=== PATIENT | female | born 1935 | race Caucasian/White ===

== ENCOUNTER 2017-05-12 13:43 | Day surgery (SDC) | payer MEDICARE ==
[2017-05-12] MEDS ORDERED: diphenhydrAMINE 25 MG CAP PO SCH (16:15)
[2017-05-12] MEDS ORDERED: Acetaminophen 500 MG TAB PO SCH (16:15)
[2017-05-12 21:28] VITALS: TEMP 97.8
[2017-05-12 21:51] VITALS: BP 180/80
[2017-05-12 21:55] LABS: #Basophils 0.1 thou/uL (0.0-0.2); #Eosinphils 0.3 thou/uL (0.0-0.7); #Lymphocytes 1.7 thou/uL (1.20-3.40); #Monocytes 0.9 thou/uL (0.11-0.59); #Neutrophils 4.1 thou/uL (1.40-6.50); %Basophils 1.1 % (0.0-1.0); %Eosinophils 4.5 % (0.0-10.0); %Lymphocytes 24.5 % (21.0-51.0); %Monocytes 12.4 % (0.0-10.0); Hematocrit 30.1 % (36.0-47.0); Mean Platelet Volume 5.8 fL (7.4-10.4); Red Blood Cell (RBC) Count 3.54 mill/uL (4.20-5.40); White Blood Cell (WBC) Count 7.1 thou/uL (4.8-10.8)
== END 2017-05-12 22:12 | disposition home or self-care (01) ==
LOC: ONC/OP 13:43 → ONC 13:47 → ONC/OP 22:12
PROVIDERS: ATTEND Internal Medicine Medical Oncology
PROC: 30233N1 Transfusion of Nonautologous Red Blood Cells into Peripheral Vein, Percutaneous Approach (ICD-10-PCS; principal; 2017-05-12)
DX: D64.9 Anemia, unspecified (principal); D69.59 Other secondary thrombocytopenia
CPT/HCPCS: 36415; 36430; 82728; 85025; 86850; 86900; 86901; P9016

== ENCOUNTER 2017-10-11 15:33 | Inpatient (IN) | payer MEDICARE ==
[2017-10-11 16:45] VITALS: BMI 17.4
[2017-10-11] MEDS ORDERED: Acetaminophen 325 MG TAB PO PRN (16:52)
[2017-10-11] MEDS ORDERED: cefTRIAXone\\ROCEPHIN 1 GM in Sodium Chloride 0.9% 100 ML IVPB SCH (17:00)
--- NOTE | 2017-10-11 19:19 | RAD ---
CHEST TWO VIEWS: HISTORY: Hypoxia. COMPARISON: None. FINDINGS: There is atherosclerosis of the aorta. Heart size is within the upper limits of normal. Lungs are h yperinflated. Interstitial opacities presumably represent fibrotic change. Superimposed infiltrate cannot be excluded. The lungs are hyperinflated. No pneumothorax. A small amount of pleural effusi on in the left hemithorax cannot be excluded. There is diffuse bone demineralization. IMPRESSION: 1. Atherosclerosis. 2. Chronic obstructive pulmonary disease. 3. Pulmonary fibrosis. 4. Interstitial opacities may represent chronic change. Superimposed infiltrate cannot be excluded. POS: [facility]
[2017-10-11] MEDS ORDERED: Sodium Chloride 0.9% 10 ML ONE (20:34)
[2017-10-11] MEDS: cefTRIAXone\\ROCEPHIN 1 GM, Syringe 0.4 ML in Sterile Water 9.6 ML SLOW IVP SCH (20:34)
[2017-10-11] MEDS: Azithromycin 500 MG in Sodium Chloride 0.9% 250 ML 250 ML IVPB SCH (20:41)
[2017-10-11] MEDS: guaiFENesin 200 MG TAB PO SCH (20:58)
--- NOTE | 2017-10-11 21:02 | HP ---
CHIEF COMPLAINT: Hypoxia. HISTORY OF PRESENT ILLNESS: The patient is a very pleasant 82-year-old female who was seen at [facility] office for anemia and was found to be hypoxic. The patient's daughter who is at bedside stated th at about on the patient started feeling unwell. On Wednesday, she went to her PCP, who prescri bed her a Z-Osmar and some steroids and sent her home. The patient stated that initially she has felt better; however, today when she went to get her routine blood draw, she felt really tired and weak. At that time, vitals were checked and the patient was found to be hypoxic at room air at 98%. The charu james then was transferred to the hospital for further evaluation. The patient states that she has b een having a cough with sputum production. Denies any fevers or chills today; however, stated that s he had a low grade fever on Wednesday. Denies any sick contacts, nausea, vomiting or diarrhea. The pat nathan states that she is normally very active moves around with her friends and is constantly doing so mething or the other. The patient does have a history of smoking remotely in the past; however, no h istory of current smoking. PAST MEDICAL HISTORY: She has a history of anemia, unknown etiology; and hypertension. PAST SURGICAL HISTORY: She had an appendectomy and hysterectomy. SOCIAL HISTORY: She used to smoke half a pack a day many years ago; however, currently does not smok e, has not smoked for several years. Denies any alcohol or drug abuse. She was a hairdresser. FAMILY HISTORY: Her mother and father both had hypertension. REVIEW OF SYSTEMS: The following complete review of systems was negative, unless otherwise mentioned in the HPI or below: Constitutional: Weight loss or gain, ability to conduct usual activities. Sk in: Rash, itching. Eyes: Double vision, pain. ENT/Mouth: Nose bleeding, neck stiffness, pain, te nderness. Cardiovascular: Palpitations, dyspnea on exertion, orthopnea. Respiratory: Shortness of breath, wheezing, cough, hemoptysis, fever or night sweats. Gastrointestinal: Poor appetite, abdom inal pain, heartburn, nausea, vomiting, constipation, or diarrhea. Genitourinary: Urgency, frequenc y, dysuria, nocturia. Musculoskeletal: Pain, swelling. Neurologic/Psychiatric: Anxiety, depressio n. Allergy/Immunologic: Skin rash, bleeding tendency. All negative except for the ones mentioned i n the HPI. MEDICATIONS: She takes aspirin 81 mg daily, Norvasc 5 mg daily, Claritin 10 mg daily. LABORATORY AND X-RAY FINDINGS: She does not get the laboratory results from the clinic. She had a C BC done, which indicated a WBC of 9.8, hemoglobin of 10.0, hematocrit of I believe it was 30.0, plate lets appeared to be normal. Chest x-ray has been ordered and is pending. PHYSICAL EXAMINATION: VITAL SIGNS: She is 98.0 temperature, pulse of 82, respirations of 20, she is 93% on 2 liters and 15 4/69 her blood pressure. GENERAL: She is awake, alert, able to completely speak full sentences, and does not appear in any re spiratory distress. CARDIOVASCULAR: S1, S2 present. No murmurs, rubs or gallops. LUNGS: Clear to auscultation. No rhonchi or wheezes noted. ABDOMEN: Soft, bowel sounds are present x2. No hepatomegaly or splenomegaly noted. EXTREMITIES: No edema. ASSESSMENT AND PLAN: The patient is a very pleasant 82-year-old female, who presents to the hospital , sent from clinic for hypoxia. 1. Acute hypoxia. Differential including possible bronchitis versus pneumonia, also heart failure. Heart failure seems to be unlikely since this just started recently on . The patient does n ot like too many testing to be done, so we will try and minimize testing; however, she has agreed on getting a chest x-ray. We will also check some a.m. labs, which she has agreed on and also check a B [employer] tomorrow. The patient's family was not very happy about Levaquin, given the side effects I did te ll them, but would start ceftriaxone and azithromycin. The patient's daughter stated that she is all ergic to PENICILLIN; however, has tolerated Keflex in the past, so we will start ceftriaxone and azit hromycin. She did take 4 days of azithromycin and 2 days of p.o. steroids. However, at this moment, I do not think she needs steroids, her lungs are completely clear. We will also need to give her Du oNeb and also we will give her some cough suppressants. We will also check a respiratory viral panel and we will also check a sputum culture if she is able to produce a good sputum. 2. Anemia. The patient has received blood transfusion once in April of last year. She normally gets her blood drawn every couple weeks. Today, her hemoglobin was 10, which I do not think could be contributing to her pneumonia. 3. Hypertension. We will continue her home medications. 4. Deep venous thrombosis prophylaxis. We will put the patient on subcu heparin. I did speak with the patient. She stated that she does not want to be resuscitated. This is in front of the patient' s daughter and DNR status was put in the computer.
[2017-10-12 04:44] LABS: #Lymphocytes 0.7 thou/uL (1.20-3.40); #Monocytes 0.7 thou/uL (0.11-0.59); #Neutrophils 7.1 thou/uL (1.40-6.50); %Basophils 0.2 % (0.0-1.0); %Eosinophils 0.1 % (0.0-10.0); %Lymphocytes 8.5 % (21.0-51.0); %Monocytes 8.1 % (0.0-10.0); %Neutrophils 83.1 % (42.0-75.0); Hemoglobin 10.2 g/dL (12.0-16.0); Mean Corpuscular HGB CONC 32.3 g/dL (32.0-36.0); Mean Corpuscular Hemoglobin 28.4 pg (27.0-31.0); Mean Corpuscular Volume 87.9 fl (81.0-99.0); Platelet Count 372 thou/uL (130-400); RBC Distribution Width 16.6 % (11.5-14.5); Red Blood Cell (RBC) Count 3.58 mill/uL (4.20-5.40); White Blood Cell (WBC) Count 8.5 thou/uL (4.8-10.8)
[2017-10-12 05:26] LABS: Anion Gap 14 mmol/L (10-20); BUN (Urea Nitrogen) 12 mg/dL (9.8-20.1); Calc. Creatinine Clearance 44 mL/min (70-130); Carbon Dioxide 23 mmol/L (23-31); Chloride 99 mmol/L (98-107); Estimated GFR-MDRD 73; Glucose 115 mg/dL (83-110); Potassium 3.5 mmol/L (3.5-5.1); Sodium 132 mmol/L (136-145)
[2017-10-12] MEDS: Amlodipine 5 MG TAB PO SCH (08:22)
[2017-10-12] MEDS: Aspirin 81 mg Enteric Coated Tablet PO SCH (08:22)
[2017-10-12] MEDS: guaiFENesin 200 MG TAB PO SCH ×2 (08:23→19:43)
--- NOTE | 2017-10-12 12:34 | PDOC.PN ---
- Subjective Encounter Start Date: 10/12/17 Encounter Start Time: 08:30 Subjective: pt up in chair feels much better today - Objective Resuscitation Status: Resuscitation Status DNR:Do Not Resuscitate Vital Signs & Weight: Vital Signs (12 hours) Temp Pulse Resp BP BP Pulse Ox 10/12/17 10:24 70 16 92 L 10/12/17 09:15 90 L 10/12/17 08:22 83 10/12/17 08:00 99.0 F 83 18 90 L 10/12/17 07:20 99.0 F 79 18 123/58 L 89 L 10/12/17 06:15 83 16 83 L 10/12/17 04:27 99.3 F 85 20 130/59 L 89 L 10/12/17 02:38 86 20 93 L Weight Admit Weight 108 lb 6.4 oz Weight 108 lb 6.4 oz I&O: 10/11/17 10/12/17 10/13/17 06:59 06:59 06:59 Intake Total 259.6 Balance 259.6 Result Diagrams: 10/12/17 04:22 10/12/17 04:22 Phys Exam - Physical Examination HEENT: PERRLA, moist MMs, sclera anicteric, TM's clear, oral pharynx no lesions , 2+ tonsils Neck: no nodes, no JVD, supple, full ROM Respiratory: no wheezing, no rales, no rhonchi, wheezing present, clear to auscultation bilateral Cardiovascular: RRR, no significant murmur, no rub, gallop, irregular Gastrointestinal: soft, non-tender, no distention, positive bowel sounds Musculoskeletal: no edema, pulses present, edema present Dx/Plan - Plan 1) Acute hypoxia 2) acute bronchitis rhino virus positve 3) ? underlying lung disease 4) chronic anemia plan: pt's labs are stable no elevated wbc's. will continue current abx given her age and undiagnosed lung disease copd vs interstitial. Pt does not want further testing and does not want to know. continue duonebs will add steroids. hh is stable. pt is still on oxygen 3L. * . Review of Systems - Review of Systems ENT: negative: Ear Pain, Ear Discharge, Nose Pain, Nose Discharge, Nose Congestion, Mouth Pain, Mouth Swelling, Throat Pain, Throat Swelling, Other Respiratory: Cough Cardiovascular: negative: chest pain, palpitations, orthopnea, paroxysmal nocturnal dyspnea, edema, light headedness, other Gastrointestinal: negative: Nausea, Vomiting, Abdominal Pain, Diarrhea, Constipation, Melena, Hematochezia, Other Genitourinary: negative: Dysuria, Frequency, Incontinence, Hematuria, Retention , Other - Medications/Allergies Allergies/Adverse Reactions: Allergies Allergy/AdvReac Type Severity Reaction Status Date / Time Penicillins Allergy Verified 10/11/17 16:20 Medications: Current Medications Acetaminophen (Tylenol) 650 mg PO Q4H PRN PRN Reason: Headache/Fever or Pain Albuterol/Ipratropium (Duoneb) 3 ml IPPB [id number] [facility] Last Admin: 10/12/17 10:24 Dose: 3 ml Amlodipine Besylate (Norvasc) 5 mg PO DAILY [facility] Last Admin: 10/12/17 08:22 Dose: 5 mg Aspirin (Ecotrin) 81 mg PO DAILY-AC [facility] Last Admin: 10/12/17 08:22 Dose: 81 mg Guaifenesin (Organ-I Nr) 200 mg PO BID [facility] Last Admin: 10/12/17 08:23 Dose: 200 mg Azithromycin 500 mg/ Sodium (Chloride) 250 mls @ 250 mls/hr IVPB 1999 [facility] Last Admin: 10/11/17 20:41 Dose: 250 mls Ceftriaxone Sodium 1 gm/ (Syringe 0.4 ml/ Sterile Water) 10 mls @ 120 mls/hr SLOW IVP 1999 [facility] Last Admin: 10/11/17 20:34 Dose: 10 mls Methylprednisolone Sodium Succinate (Solu-Medrol) 20 mg IVP 0000,0800,1600 [facility]
[2017-10-12] MEDS: Azithromycin 500 MG in Sodium Chloride 0.9% 250 ML 250 ML IVPB SCH (19:08)
[2017-10-12] MEDS: cefTRIAXone\\ROCEPHIN 1 GM, Syringe 0.4 ML in Sterile Water 9.6 ML SLOW IVP SCH (19:43)
[2017-10-13] MEDS: guaiFENesin 200 MG TAB PO SCH ×2 (09:11→20:57)
[2017-10-13] MEDS: Aspirin 81 mg Enteric Coated Tablet PO SCH (09:11)
[2017-10-13] MEDS: Amlodipine 5 MG TAB PO SCH (09:12)
--- NOTE | 2017-10-13 16:51 | PQF ---
CLINICAL DOCUMENTATION IMPROVEMENT CLARIFICATION FORM: ICD-10 Updated PLEASE DO AN ADDENDUM TO THE PROGRESS NOTE WITH ANY DOCUMENTATION UPDATES OR ADDITIONS AND CARRY THROUGH TO DC SUMMARY. THANK YOU. DATE: 10/13/17 ATTN: Dr. Juárez Please exercise your independent, professional judgment in responding to the clarification form. Clinical indicators are provided on the bottom of this form for your review Please check appropriate box(s): [ x ] Acute Respiratory Failure: [ x] with Hypoxia [ ] with Hypercapnia [ ] Acute On Chronic Respiratory Failure: [ ] with Hypoxia [ ] with Hypercapnia [ ] Acute Respiratory Failure due to: (etiology) [ ] Chronic Respiratory Failure only [ ] with Hypoxia [ ] with Hypercapnia [ ] Other diagnosis [ ] Unable to determine In addition, please specify: Present on Admission (POA): [ x] Yes [ ] No [ ] Unable to determine For continuity of documentation, please document condition throughout progress notes and discharge summary. Thank You. CLINICAL INDICATORS - SIGNS / SYMPTOMS / LABS H&P: RESP. 20, SHE IS 93% ON 2 LITERS ACUTE HYPOXIA. PN 10/12: ACUTE HYPOXIA ACUTE BRONCHITIS RHINO VIRUS POSITIVE RESP. NEB TREATMENTS 10/11 @1935: O2 SAT 88 ON 1.5L OXYGEN NC 10/11 @ 2245: O2 SAT 90 ON 3L OXYGEN NC 10/12 @ 0615: O2 SAT 83 ON 3L OXYGEN NC RISKS: H&P: AGE 82 YO. SENT FROM CLINIC FOR HYPOXIA. HISTORY OF ANEMIA, HYPERTENSION. HAS NOT SMOKED FOR SEVERAL YEARS TREATMENT: ORDER 10/12 RESP: O2 TO KEEP SATS 92% CPOE 10/11: DUONEB Q 4 HR- RT Thank you, Katy (This form is maintained as a part of the permanent medical record) 2015 [employer] All Rights Reserved Katy Ramirez RN, BSN [email or web address] Office: [phone] [facility]
[2017-10-13] MEDS: Sodium Chloride 0.9% 20 ML ONE ×2 (16:54→16:56)
[2017-10-13] MEDS: cefTRIAXone\\ROCEPHIN 1 GM, Syringe 0.4 ML in Sterile Water 9.6 ML SLOW IVP SCH (19:39)
[2017-10-13] MEDS: Azithromycin 500 MG in Sodium Chloride 0.9% 250 ML 250 ML IVPB SCH (19:42)
[2017-10-14 08:16] VITALS: BP 141/65; TEMP 97.7
[2017-10-14] MEDS: guaiFENesin 200 MG TAB PO SCH (09:21)
[2017-10-14] MEDS: Aspirin 81 mg Enteric Coated Tablet PO SCH (09:22)
[2017-10-14] MEDS: Sodium Chloride 0.9% 20 ML ONE (09:22)
[2017-10-14] MEDS: Amlodipine 5 MG TAB PO SCH (09:30)
--- NOTE | 2017-10-14 11:21 | PDOC.PN ---
- Subjective Encounter Start Date: 10/14/17 Encounter Start Time: 08:15 Subjective: pt up in chair no complains - Objective Resuscitation Status: Resuscitation Status DNR:Do Not Resuscitate Vital Signs & Weight: Vital Signs (12 hours) Temp Pulse Resp BP BP Pulse Ox 10/14/17 09:30 87 141/65 H 10/14/17 08:15 97.7 F 87 20 141/65 H 94 L 10/14/17 08:09 80 16 10/14/17 02:35 77 16 96 Weight Admit Weight 108 lb 6.4 oz Weight 108 lb 6.4 oz I&O: 10/13/17 10/14/17 10/15/17 06:59 06:59 06:59 Intake Total 1510.6 Balance 1510.6 Result Diagrams: 10/12/17 04:22 10/12/17 04:22 Phys Exam - Physical Examination HEENT: PERRLA, moist MMs, sclera anicteric, TM's clear, oral pharynx no lesions , 2+ tonsils Neck: no nodes, no JVD, supple, full ROM Cardiovascular: RRR, no significant murmur, no rub, gallop, irregular Gastrointestinal: soft, non-tender, no distention, positive bowel sounds Dx/Plan - Plan 1) Acute hypoxia secondary to new dx copd 2) acute bronchitis rhino virus positive 3) chronic anemia plan: pt's labs are stable no elevated wbc's. will continue current abx given her age and copd. Continue duonebs will add steroids. hh is stable. pt is still on oxygen 3L-4L. pt is a newly dx copd. Due to copd and hypoxia pt will need oxygen at home, also pt will need home nebulizer * . Review of Systems - Review of Systems Eyes: negative: Pain, Vision Change, Conjunctivae Inflammation, Eyelid Inflammation, Redness, Other ENT: negative: Ear Pain, Ear Discharge, Nose Pain, Nose Discharge, Nose Congestion, Mouth Pain, Mouth Swelling, Throat Pain, Throat Swelling, Other Respiratory: negative: Cough, Dry, Shortness of Breath, Hemoptysis, SOB with Excertion, Pleuritic Pain, Sputum, Wheezing Cardiovascular: negative: chest pain, palpitations, orthopnea, paroxysmal nocturnal dyspnea, edema, light headedness, other Gastrointestinal: negative: Nausea, Vomiting, Abdominal Pain, Diarrhea, Constipation, Melena, Hematochezia, Other - Medications/Allergies Allergies/Adverse Reactions: Allergies Allergy/AdvReac Type Severity Reaction Status Date / Time Penicillins Allergy Verified 10/11/17 16:20 Medications: Current Medications Acetaminophen (Tylenol) 650 mg PO Q4H PRN PRN Reason: Headache/Fever or Pain Albuterol/Ipratropium (Duoneb) 3 ml IPPB [id number] [facility] Last Admin: 10/14/17 08:09 Dose: 3 ml Amlodipine Besylate (Norvasc) 5 mg PO DAILY [facility] Last Admin: 10/14/17 09:30 Dose: 5 mg Aspirin (Ecotrin) 81 mg PO DAILY-AC [facility] Last Admin: 10/14/17 09:22 Dose: 81 mg Guaifenesin (Organ-I Nr) 200 mg PO BID [facility] Last Admin: 10/14/17 09:21 Dose: 200 mg Levofloxacin (Levaquin) 500 mg PO 0600 [facility] Methylprednisolone Sodium Succinate (Solu-Medrol) 20 mg IVP 0000,0800,1600 [facility] Last Admin: 10/14/17 09:20 Dose: 20 mg
--- NOTE | 2017-10-15 03:20 | DIS ---
DATE OF ADMISSION: 10/11/2017 DATE OF DISCHARGE: 10/14/2017 DISCHARGE DIAGNOSES: 1. Acute hypoxia secondary to most likely chronic obstructive pulmonary disease. 2. Acute bronchitis, viral panel positive for rhinovirus. 3. Chronic anemia. HOSPITAL COURSE: The patient is a very pleasant, 82-year-old female, who was sent from her oncologis t's office for shortness of breath. The patient was found to have saturations in the low 80s. The p atient initially stated that she did not want extensive testing, however, agreed on a chest x-ray. C hest x-ray indicated hyperinflated lungs with possible pulmonary fibrosis. The patient has never bee n officially diagnosed with COPD or with pulmonary fibrosis or interstitial lung disease. 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 She has a remote histo ry of smoking, but not very heavy smoking. The patient's viral panel was positive for rhinovirus. S he was treated with DuoNebs and with prophylactic antibiotics. She continued to improve throughout t hospital stay. Steroids were also added. The patient on the day of discharge was ambulated. She did require about 3-4 liters of oxygen. I had an extensive talk with the patient and the family and recommended following up with Pulmonology as an outpatient to get an official diagnosis, so that she can be on inhalers, which would prevent any exacerbations. There is a possibility that the patient at baseline may require oxygen on a regular basis. The patient's daughter has made an appointment wi th her primary care doctor for a followup visit and titrating the oxygen down. DISCHARGE MEDICATIONS: As the followin. Medrol Dosepak. 2. Aspirin 81 mg daily. 3. Norvasc 5 mg p.o. daily. 4. Claritin 10 mg daily. 5. Levaquin 500 mg x2 more days. 6. DuoNebs q.4 hours. The patient also was given a script for nebulizer treatment. PHYSICAL EXAMINATION: VITAL SIGNS: Temperature 97.7, pulse 87, oxygen saturation 94% on 3 liters, blood pressure 141/65, a nd respirations are 18. GENERAL: She is awake, alert, oriented x3, was sitting up in the chair, did not appear in any respir atory distress. CARDIOVASCULAR: S1, S2 present. No murmurs, rubs, or gallops. ABDOMEN: Soft, nontender. Bowel sounds are present x2. LUNGS: She does have maybe mild crackles to bilateral lower bases; however, no rhonchi or wheezes no melquiades. DISCHARGE INSTRUCTIONS: The patient will be discharged home. She will follow up with her PCP, and I do recommend following up with a hydraulic mechanic, which the patient has agreed.
== END 2017-10-14 17:41 | disposition home or self-care (01) | DRG 189 ==
LOC: ONC 15:33
PROVIDERS: ADMIT Internal Medicine Hematology & Oncology; ATTEND Internal Medicine Hematology & Oncology
DX: J96.01 Acute respiratory failure with hypoxia (principal); J44.0 Chronic obstructive pulmonary disease with (acute) lower respiratory infection; D64.9 Anemia, unspecified; J20.6 Acute bronchitis due to rhinovirus; Z87.891 Personal history of nicotine dependence; I10 Essential (primary) hypertension; Z66 Do not resuscitate
CPT/HCPCS: 36415; 71046; 80048; 82728; 83880; 85025; 87633; 94640; A4216; J0456; J0696; J2920; J7050; J7620

== ENCOUNTER 2017-12-11 06:57 | Inpatient (IN) | payer MEDICARE ==
[2017-12-11] MEDS ORDERED: predniSONE 20 MG TAB ONE (07:19)
[2017-12-11] MEDS ORDERED: Azithromycin 250 MG TAB ONE ×2 (07:44→07:59)
[2017-12-11 07:50] LABS: Base Excess-Venous 0.3 mmol/L (0 (+/- 2.5)); CO2 Tension (PvCO2) 50.9 mmHg (41.0-51.0); Calcium, Ionized 1.21 mmol/L (1.12-1.32); Hemoglobin - Calc 13.5 g/dL (12.0-18.0); O2 Tension (PvO2) 33.8 mmHg (35.0-45.0); T. Carbon Dioxide 28.5 mmol/L (1.0-85.0); pH (Venous) 7.332 (7.35-7.45); vO2 Saturation-calc 59.9 % (94-98)
[2017-12-11 07:55] LABS: #Eosinphils 0.4 thou/uL (0.0-0.7); #Monocytes 0.8 thou/uL (0.11-0.59); #Neutrophils 5.4 thou/uL (1.40-6.50); %Basophils 0.5 % (0.0-1.0); %Eosinophils 5.7 % (0.0-10.0); %Lymphocytes 13.2 % (21.0-51.0); %Monocytes 10.7 % (0.0-10.0); %Neutrophils 69.9 % (42.0-75.0); Hemoglobin 12.1 g/dL (12.0-16.0); Mean Corpuscular HGB CONC 31.6 g/dL (32.0-36.0); Mean Corpuscular Hemoglobin 28.4 pg (27.0-31.0); Mean Corpuscular Volume 89.9 fL (78.0-98.0); Mean Platelet Volume 5.9 fL (7.4-10.4); Platelet Count 388 thou/uL (130-400); RBC Distribution Width 15.2 % (11.5-14.5); Red Blood Cell (RBC) Count 4.26 mill/uL (4.20-5.40); White Blood Cell (WBC) Count 7.7 thou/uL (4.8-10.8)
--- NOTE | 2017-12-11 08:00 | RAD ---
SINGLE VIEW OF THE CHEST: HISTORY: Cough. COMPARISON: 10/11/17. FINDINGS: A single view of the chest shows a normal-size cardiomediastinal silhouette with atherosclerotic calc ifications in the aorta. Hyperexpansion of the lungs and increased interstitial lung markings are li pedrito secondary to COPD. Atelectasis versus scarring is seen in the mid portion of the left thorax. No pleural effusion or consolidation are seen. IMPRESSION: 1. Chronic obstructive pulmonary disease. 2. Left atelectasis versus scarring. POS: [facility]
[2017-12-11 08:11] LABS: ALT (SGPT) 7 U/L (8-55); AST (SGOT) 14 U/L (5-34); Alkaline Phosphatase 90 U/L (40-150); Anion Gap 14 mmol/L (10-20); BUN (Urea Nitrogen) 8 mg/dL (9.8-20.1); Bilirubin, Total 0.5 mg/dL (0.2-1.2); Calc. Creatinine Clearance 0 mL/min (70-130); Calcium 9.6 mg/dL (7.8-10.44); Carbon Dioxide 23 mmol/L (23-31); Chloride 104 mmol/L (98-107); Estimated GFR-MDRD 73; Globulin 4.2 g/dL (2.4-3.5); Glucose 101 mg/dL (83-110); Potassium 4.7 mmol/L (3.5-5.1); Protein, Total 8.2 g/dL (6.0-8.3); Sodium 136 mmol/L (136-145)
[2017-12-11] MEDS ORDERED: Cefepime 2 GM in Sodium Chloride 0.9% 100 ML IVPB SCH (08:15)
[2017-12-11 08:16] LABS: Troponin I 0.033 ng/mL (< 0.028)
[2017-12-11] MEDS ORDERED: Acetaminophen 325 MG TAB PO PRN (10:28)
[2017-12-11] MEDS ORDERED: Bisacodyl 5 MG TAB PO PRN (10:28)
[2017-12-11 11:11] LABS: Troponin I 0.077 ng/mL (< 0.028)
--- NOTE | 2017-12-11 11:26 | HP ---
PRIMARY CARE PROVIDER: Dr. Britany Overton. CHIEF COMPLAINT: Shortness of breath. HISTORY OF PRESENT ILLNESS: Ms. Ferguson is a pleasant 82-year-old lady who was seen at [facility] on 12/11/2017. She was hospitalized here from 10/13 to 10/14 of this year for COPD exacerbation. She had viral pane l positive for rhinovirus during that admission. She was discharged home on home oxygen. She was reportedly doing well until early November. On 11/21/2017, she was diagnosed with pneumonia mary use she had cough and shortness of breath. She was treated with levofloxacin. She finished 8 days o ut of a 10-day course, because of upset stomach. Five days ago, she started having cough. The cough is productive of sputum, which appears to vary in color from bloody to clear. She was seen at [facility] and diagnosed with right lower lobe pneumonia. She was prescribed levofloxacin initial ly, following day it was switched to Omnicef and Z-ANDREW. She also has a nebulizer at home and she was using it twice a day prior to 11/21/2017. Now, she is using it every 4 hours when awake. She continued to have shortness of breath. Her daughter checked her oxygen saturation today and she was found to have oxygen saturation of 84% while she was on 3 liters of home oxygen. EMS was therefo re called and she received DuoNeb on route to the Emergency Department. She is also followed by Oncology Service for chronic anemia. She has had hemoglobin checked every mo nth. She specifically denies any chest pain or palpitations at this time. REVIEW OF SYSTEMS: All other systems reviewed and found to be negative. PAST MEDICAL HISTORY: Anemia, hypertension, and COPD. PAST SURGICAL HISTORY: Appendectomy and hysterectomy. SOCIAL HISTORY: No current tobacco use, alcohol use or recreational drug use. FAMILY HISTORY: Hypertension in both parents. CODE STATUS: I discussed her code status. She is DNR. ALLERGIES: PENICILLIN. CURRENT MEDICATIONS: Norvasc 5 mg daily, aspirin 81 mg daily, Omnicef 300 mg 2 times a day and albut nelson 90 mcg every 4 hours as needed, inhaled. PHYSICAL EXAMINATION: GENERAL: Ms. Ferguson is awake and alert, not in acute distress. VITAL SIGNS: Blood pressure is 165/77, pulse is 86, she is breathing at rate of 20 and saturating 94 % on 3 liters of oxygen. She is afebrile. EYES: No scleral icterus. No conjunctival pallor. ENT: Moist mucosal membranes, no oropharyngeal erythema or exudates. NECK: Supple, nontender, normal range of movement. Trachea is midline. RESPIRATORY: Accessory muscles of breathing are active. Chest wall movements are symmetric bilatera lly. She has diffuse expiratory wheeze. CARDIOVASCULAR: S1 and S2 are heard, regular. Peripheral pulses palpable. No carotid bruit, no per icardial rub. ABDOMEN: Soft, nontender, bowel sounds are heard, no hepatomegaly, no splenomegaly. NEUROLOGIC: Cranial nerves II through XII intact. Deep tendon reflexes are 2+. SKIN: No rashes or subcutaneous nodules. LYMPHATIC: No cervical lymphadenopathy. PSYCHIATRIC: Normal mood, normal affect. The patient is oriented to person, place, and time. LABORATORY DATA: Ms. Ferguson's labs and investigations were reviewed. I reviewed her electrocardi ogram, which shows normal sinus rhythm, no ST changes to suggest an acute coronary syndrome. I also reviewed her chest x-ray, which shows hyperinflated lungs, but no acute pulmonary infiltrates. She h as normal white count, hemoglobin normal at 12.1, normal platelet count, normal sodium, normal potass ium, normal creatinine, unremarkable liver profile and an indeterminate troponin I of 0.033. Lactic acid is normal. ASSESSMENT AND PLAN: Ms. Ferguson is a pleasant 82-year-old lady who was seen at [facility] on 12/11/2017. Her problem list includes: 1. Acute on chronic hypoxic respiratory failure: Ms. Ferguson is presenting with acute on chronic hypoxic respiratory failure, most likely secondary to chronic obstructive pulmonary disease exacerbat ion. She will be admitted to the hospital for further management. 2. Chronic obstructive pulmonary disease exacerbation: She will be treated with oxygen, steroids, b ronchodilators and antibiotics. She has received Levaquin, cefepime, and azithromycin in the emergen cy room. I will continue her on cefepime and azithromycin. I will request Pulmonology consult for poli mckeon and help with management. 3. Hypertension: Monitor vital signs, titrate antihypertensives as needed. 4. Chronic anemia: Her hemoglobin is actually in the normal range today. We will recheck hemoglobi n level. 5. Elevated troponin I: Troponin I is in the indeterminate range, likely secondary to demand ischem ia from chronic obstructive pulmonary disease exacerbation. We will recheck her troponin. Patient d enies any chest pain at this time. LEVEL OF RISK: High. LEVEL OF COMPLEXITY: High. Thank you very much for allowing me to participate in your patient's care. Please feel free to conta ct me with any questions or concerns.
[2017-12-11] MEDS ORDERED: ISOVUE-370 76%-LOCM 1 ML ONE (12:13)
[2017-12-11 14:00] LABS: Troponin I 0.091 ng/mL (< 0.028)
--- NOTE | 2017-12-11 14:54 | CT ---
CT OF THE CHEST WITH CONTRAST: COMPARISON: None. HISTORY: Recurrent pneumonia for the past 3 weeks. Hemoptysis. TECHNIQUE: Multiple contiguous axial images were obtained in a CT of the chest with contrast. Coronal reformats were performed. FINDINGS: There is hyperexpansion of the lungs from COPD. Bronchiectasis is seen in the right middle lobe and right lower lobe. The right middle lobe was predominantly collapsed. Increased interstitial lung ma rkings are seen in the right middle and lower lobes. No suspicious pulmonary mass is present. There is a large mass in the mediastinum in the subcarinal location. This measures approximately 3.2 cm in diameter. This causes deviation of the mainstem bronchi secondary to mass effect. No other e nlarged mediastinal or hilar masses or lymph nodes are seen. There is a hypodensity in the right kidney which likely represents a cyst. The other visualized subd iaphragmatic structures are unremarkable. Degenerative changes are seen in the spine. The chest wal l soft tissues are unremarkable. IMPRESSION: 1. There is a mass within the mediastinum. This could represent a lymph node, but is nonspecific. This is associated with the trachea and mainstem bronchi and a neoplasm arising from the airway is al so a possibility. 2. Nonspecific bronchiectasis in the right middle and lower lobes. 3. Right renal cyst. POS: [facility]
--- NOTE | 2017-12-11 19:20 | CON ---
DATE OF CONSULTATION: 12/11/2017 SERVICE: Pulmonary Medicine. REASON FOR CONSULTATION: COPD exacerbation. HISTORY OF PRESENT ILLNESS: The patient is an 82-year-old white female with past medical history significant for essentially nothing. 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 She also has about a 20 to 30-pack- year history of smoking, but quit a couple of years ago. She was in her usual state of health until September of this year. She started feeling a little bit lousy. She saw Dr. Clifford. She was admitted to the hospital for COPD exacerbation. After couple of days, she made 100% recovery. She was doing well until the beginning of this month. She had another COPD exacerbation. This was treated like a pneumonia. She had a chest x-ray at outside hospital that demonstrated some sort of an infiltrate. It is not clear to me where this infiltrate was located. That being said, she got put on antibiotics and steroids. She made a 100% recovery once again, but then one day ago, started having increasing shortness of breath, congestion, cough, and even a little hemoptysis. She returned to the emergency department. She has been given some nebulized medications, steroids and antibiotics and once again and has had a profound improvement in symptoms. She currently denies any fevers or chills. She does not note any chest pain or palpitations. Otherwise, there has been no interval change to her condition. PAST MEDICAL HISTORY: 1. Hypertension. 2. Chronic obstructive pulmonary disease based on radiographic criteria. 3. Anemia, iron deficiency. PAST SURGICAL HISTORY: 1. Appendectomy. 2. Hysterectomy. SOCIAL HISTORY: Negative for alcohol, tobacco or illicit drug use currently. She has a 20 to 16-[id number]-[id number] history of smoking, but quit a couple of years ago. She has no exposure to chemicals, dust, asbestosis or tuberculosis. FAMILY HISTORY: Noncontributory. ALLERGIES: PENICILLIN. MEDICATIONS: List of her inpatient medications were reviewed and modified. REVIEW OF SYSTEMS: General, head, ears, eyes, nose, throat, cardiovascular, respiratory, GI, , musculoskeletal, neurologic and skin is negative except as mentioned in the HPI. PHYSICAL EXAMINATION: VITAL SIGNS: Afebrile, pulse 82, blood pressure 136/63, respirations 18, saturation 93% on 3 liters nasal cannula. GENERAL: The patient is awake, alert, no apparent distress. LUNGS: Decreased air entry with rhonchi and wheezing present. I do not appreciate any crackles. HEART: Normal rate and regular. ABDOMEN: Soft, nontender, and nondistended. Bowel sounds are positive. MUSCULOSKELETAL: No cyanosis or clubbing. There is no pitting in the bilateral lower extremities. NEUROLOGIC: Grossly nonfocal. LABORATORY DATA: WBC 7.7, hemoglobin 12.1, and platelets 388,000. A pH 7.33, pCO2 51 on VBG. Basic metabolic profile and liver function studies are essentially unremarkable. Lactate is normal. Troponin is gently up trending to 0.77, ionized calcium 1.2. Respiratory syncytial virus, influenza A and B are negative. IMAGING DATA: Chest x-ray demonstrates a left mid lung zone plate of atelectasis which was not present 2 months ago. The lungs are hyperexpanded. Interstitial markings are fairly predominant. ASSESSMENT: 1. Acute hypoxic respiratory failure. 2. Chronic obstructive pulmonary disease with acute exacerbation. 3. Hemoptysis. 4. Abnormal troponin. DISCUSSION AND PLAN: I will add BNP with the morning laboratories to see if this is significantly elevated. She truthfully does not have any signs or symptoms associated with volume overload. We will get a CT of the chest because she has had multiple episodes of COPD exacerbation/pneumonia with recrudescence. She is also having some hemoptysis. As such, I would like to evaluate for endobronchial disease. I will add nebulized medications. I will deescalate her steroids and continue her antibiotics as previously directed. Pulmonary or Critical Care will continue to follow along while she remains in house for the time being, but from my perspective, she is stable for transition to the medical unit. 70 minutes have been devoted to this patient in various activities. I personally reviewed all imaging studies and laboratory data noted within this document. For fifty percent of this time, I was interacting with the patient at the bedside or coordinating care with the care team. For the remainder of the time I was immediately available to the patient in the hospital unit. GINO
[2017-12-11] MEDS: Cefepime 2 GM in Sodium Chloride 0.9% 100 ML IVPB SCH (20:09)
[2017-12-12 05:03] LABS: #Eosinphils 0.1 thou/uL (0.0-0.7); #Lymphocytes 1.3 thou/uL (1.20-3.40); #Monocytes 0.9 thou/uL (0.11-0.59); #Neutrophils 5.1 thou/uL (1.40-6.50); %Basophils 0.3 % (0.0-1.0); %Lymphocytes 17.2 % (21.0-51.0); %Monocytes 11.6 % (0.0-10.0); %Neutrophils 68.8 % (42.0-75.0); Hemoglobin 11.3 g/dL (12.0-16.0); Mean Corpuscular HGB CONC 33.2 g/dL (32.0-36.0); Mean Corpuscular Hemoglobin 29.2 pg (27.0-31.0); Mean Platelet Volume 5.7 fL (7.4-10.4); Platelet Count 392 thou/uL (130-400); RBC Distribution Width 15.1 % (11.5-14.5); Red Blood Cell (RBC) Count 3.87 mill/uL (4.20-5.40); White Blood Cell (WBC) Count 7.4 thou/uL (4.8-10.8)
[2017-12-12 05:07] LABS: Anion Gap 12 mmol/L (10-20); BUN (Urea Nitrogen) 9 mg/dL (9.8-20.1); Calc. Creatinine Clearance 45 mL/min (70-130); Calcium 9.9 mg/dL (7.8-10.44); Carbon Dioxide 25 mmol/L (23-31); Chloride 101 mmol/L (98-107); Estimated GFR-MDRD 71; Glucose 89 mg/dL (83-110); Potassium 3.9 mmol/L (3.5-5.1); Sodium 134 mmol/L (136-145)
[2017-12-12] MEDS ORDERED: Ondansetron ODT 4 MG TAB PO PRN (08:46)
[2017-12-12] MEDS: Azithromycin 500 MG in Sodium Chloride 0.9% 250 ML 250 ML IVPB SCH (08:47)
[2017-12-12] MEDS: Cefepime 2 GM in Sodium Chloride 0.9% 100 ML IVPB SCH ×2 (08:48→21:05)
[2017-12-12] MEDS: predniSONE 20 MG TAB PO SCH (08:48)
[2017-12-12] MEDS ORDERED: Enoxaparin Sodium 40 MG/0.4 ML SYRINGE SC SCH (09:00)
[2017-12-12] MEDS ORDERED: Amlodipine 5 MG TAB PO SCH (10:00)
[2017-12-12] MEDS ORDERED: Aspirin 81 mg Enteric Coated Tablet PO SCH (10:00)
[2017-12-12] MEDS ORDERED: diphenhydrAMINE 12.5 MG/5 ML UDCUP PO PRN (11:54)
[2017-12-12] MEDS ORDERED: diphenhydrAMINE 25 MG CAP PO PRN (11:54)
[2017-12-12] MEDS ORDERED: Senokot 8.6 MG TAB PO PRN (11:59)
[2017-12-12] MEDS ORDERED: Polyethylene Glycol 3350 17 GM Packet PO PRN (11:59)
[2017-12-12] MEDS ORDERED: Lidocaine 4% PF 5 ML AMP NEB SCH (13:45)
--- NOTE | 2017-12-12 13:50 | PRG ---
DATE OF SERVICE: 12/12/2017. SERVICE: Pulmonary Medicine. INTERVAL HISTORY: The patient is doing outstanding from a respiratory standpoint. She denies any cu rrent chest pain, nausea, vomiting, fevers or chills. Otherwise, there has been no significant inter gilbert change to her condition. She is breathing comfortably. She has been able to ambulate with physi wander therapy. PHYSICAL EXAMINATION: VITAL SIGNS: Afebrile, pulse 91, blood pressure 137/62, respirations 16, saturation 95% on 3 liters nasal cannula. GENERAL: The patient is awake, alert, in no apparent distress. LUNGS: Decent air entry. Rhonchi are present. There is a prolonged expiratory phase and a prolonge d inspiratory phase. HEART: Normal rate, regular. ABDOMEN: Soft, nontender, nondistended. Bowel sounds are positive. MUSCULOSKELETAL: No cyanosis or clubbing. No pitting in the bilateral lower extremities. NEUROLOGIC: Grossly nonfocal. LABORATORY DATA: WBC 7.4, hemoglobin 11.3, platelets 392,000. Basic metabolic profile is completely unremarkable. BNP 516. RSV, blood cultures x2 and influenza A and B are unremarkable. IMAGING: CT of the chest demonstrates findings consistent with emphysema. She also has a large para tracheal mass. It is at the division of the right and left mainstem bronchus. It appears to be part ially occluding the left mainstem, and the right mainstem resulting obstructive pathology. ASSESSMENT: 1. Acute hypoxic respiratory failure. 2. Chronic obstructive pulmonary disease with acute exacerbation. 3. Tracheal mass. 4. Hemoptysis. DISCUSSION AND PLAN: We discussed the options moving forward to investigate this tracheal lesion. U ltimately, the patient have consented to proceeding with a bronchoscopy for diagnostic and possibly t here is some therapeutic purpose. We will tentatively plan this procedure for Wednesday. I discussed the risks and benefits of moving forward with the surgery. They do understand that if there is signi ficant bleeding, there could be a life threatening event during the procedure. That being said, they understand that if this mass is growing, her respiratory events are going to become more frequent an d more severe through time. She never wants to wake up the way that she did a couple of days ago. A s such, she is going to move forward with this procedure, so that we can get some information and hop efully prevent the next episode from occurring.
--- NOTE | 2017-12-12 23:35 | PDOC.PN ---
- Subjective Encounter Start Date: 12/12/17 Encounter Start Time: 13:00 Patient seen and examined for Resp failure. SOB improving. Productive cough +. No new complaints. No overnight events - Objective Resuscitation Status: Resuscitation Status DNR:Do Not Resuscitate MAR Reviewed: Yes Vital Signs & Weight: Vital Signs (12 hours) Temp Pulse Resp BP Pulse Ox 12/12/17 18:29 77 12 96 12/12/17 16:20 98.0 F 77 18 122/69 97 12/12/17 16:00 78 16 128/62 98 12/12/17 15:02 95 12/12/17 15:01 74 20 95 12/12/17 12:00 78 16 122/57 L 95 Weight Weight 112 lb 12.8 oz I&O: 12/11/17 12/12/17 12/13/17 06:59 06:59 06:59 Intake Total 1480 1310 Output Total 1150 875 Balance 330 435 Result Diagrams: 12/12/17 04:28 12/12/17 04:28 Radiology Reviewed by me: Yes (Chest CT - Tracheal mass/Bronchiectasis) EKG Reviewed by me: Yes (Tele SR) Phys Exam - Physical Examination Constitutional: NAD Respiratory: no wheezing B/L rhonchi with scat rales, No accessory muscle use Cardiovascular: RRR, no rub no heaves/pulsations Gastrointestinal: soft, non-tender, no distention, positive bowel sounds Musculoskeletal: no edema, pulses present Neurological: non-focal, normal sensation, moves all 4 limbs Psychiatric: normal affect, A&O x 3 Dx/Plan (1) Acute and chronic respiratory failure ([id number]) Code(s): J96.20 - ACUTE AND CHR RESP FAILURE, UNSP W HYPOXIA OR HYPERCAPNIA Status: Acute (2) COPD exacerbation Code(s): J44.1 - CHRONIC OBSTRUCTIVE PULMONARY DISEASE W (ACUTE) EXACERBATION Status: Acute (3) Tracheal mass Code(s): J39.8 - OTHER SPECIFIED DISEASES OF UPPER RESPIRATORY TRACT Status: Acute (4) Chronic respiratory failure Code(s): J96.10 - CHRONIC RESPIRATORY FAILURE, UNSP W HYPOXIA OR HYPERCAPNIA Status: Acute Qualifiers: Respiratory failure complication: hypoxia Qualified Code(s): J96.11 - Chronic respiratory failure with hypoxia (5) Elevated troponin Code(s): R74.8 - ABNORMAL LEVELS OF OTHER SERUM ENZYMES Status: Acute Comment: prob due to # 1 - Plan continue antibiotics, respiratory therapy, out of bed/ambulate, DVT proph w/SCDs Check Echo due to BNP > 500 -: AM labs -: Cont Steroids/Atbx -: ?Bronchoscopy -: Cont other meds as below Review of Systems - Review of Systems Constitutional: negative: fever, chills, sweats, weakness, malaise, other Cardiovascular: negative: chest pain, palpitations, orthopnea, paroxysmal nocturnal dyspnea, edema, light headedness, other Gastrointestinal: negative: Nausea, Vomiting, Abdominal Pain, Diarrhea, Constipation, Melena, Hematochezia, Other - Medications/Allergies Allergies/Adverse Reactions: Allergies Allergy/AdvReac Type Severity Reaction Status Date / Time Penicillins Allergy Verified 10/11/17 16:20 Medications: Current Medications Acetaminophen (Tylenol) 650 mg PO Q4H PRN PRN Reason: Headache/Fever or Pain Albuterol/Ipratropium (Duoneb) 3 ml NEB [id number] [facility] Last Admin: 12/12/17 18:29 Dose: 3 ml Albuterol/Ipratropium (Duoneb) 3 ml NEB [facility] Amlodipine Besylate (Norvasc) 5 mg PO DAILY [facility] Aspirin (Ecotrin) 81 mg PO DAILY-AC [facility] Bisacodyl (Dulcolax) 10 mg PO DAILYPRN PRN PRN Reason: Constipation Diphenhydramine HCl (Benadryl) 12.5 mg PO Q8H PRN PRN Reason: Insomnia Azithromycin 500 mg/ Sodium (Chloride) 250 mls @ 250 mls/hr IVPB 0800 [facility] Last Admin: 12/12/17 08:47 Dose: 250 mls Cefepime HCl 2 gm/ Sodium (Chloride) 100 mls @ 200 mls/hr IVPB Q12HR [facility] Last Admin: 12/12/17 21:05 Dose: 100 mls Lidocaine HCl (Xylocaine 4% Pf) 5 ml NEB [facility] Ondansetron HCl (Zofran Odt) 4 mg PO Q6H PRN PRN Reason: Nausea/Vomiting Last Admin: 12/12/17 09:58 Dose: 4 mg Polyethylene Glycol (Miralax) 17 gm PO DAILY PRN PRN Reason: Constipation Prednisone (Prednisone) 40 mg PO QA-[facility] Stop: 12/15/17 08:01 Last Admin: 12/12/17 08:48 Dose: 40 mg Senna (Senokot) 2 tab PO HSPRN PRN PRN Reason: Constipation Sodium Chloride (Flush - Normal Saline) 10 ml IVF Q12HR [facility] Last Admin: 12/12/17 21:05 Dose: 10 ml Sodium Chloride (Flush - Normal Saline) 10 ml IVF PRN PRN PRN Reason: Saline Flush
[2017-12-13] MEDS: Amlodipine 5 MG TAB PO SCH (08:24)
[2017-12-13] MEDS: Cefepime 2 GM in Sodium Chloride 0.9% 100 ML IVPB SCH ×2 (08:24→21:24)
[2017-12-13] MEDS: predniSONE 20 MG TAB PO SCH (08:25)
[2017-12-13] MEDS: Aspirin 81 mg Enteric Coated Tablet PO SCH (08:25)
--- NOTE | 2017-12-13 11:07 | CON ---
DATE OF CONSULTATION: 12/13/2017 HISTORY OF PRESENT ILLNESS: Ms. Ferguson is an 82-year-old female with a long history of COPD and a history of tobacco use in the past, presented to the emergency room with increasing shortness of becky ath and acute hypoxia with her lips turning blue. She is already on oxygen at home after diagnosis o f COPD and RSV this last winter. She is maintained on 3 liters, but this was not enough for her when she was at home over the weekend. On admission, CT angiogram showed a subcarinal mass with a questi on of an endobronchial lesion. Notably, in the past, I have recommended a CT of the chest for her an d she has declined and refused even though we have set this up multiple times as an outpatient. Toda y, she is much calmer and her oxygen level is stable on 2-3 liters nasal cannula. She is resting com fortably and does not complain of increased shortness of breath currently. She has had one episode o f hemoptysis recently, but denies any hemoptysis since being admitted. No fevers or chills. Her stefan ght has been stable all over the last few years, she has lost 10-15 pounds. She has a bronchoscopy s cheduled for tomorrow. PAST MEDICAL HISTORY: 1. Oxygen dependent emphysema. 2. Recent history of RSV. 3. History of iron deficiency anemia. 4. Hypertension. CURRENT MEDICATIONS: 1. Tylenol p.r.n. 2. DuoNeb p.r.n. 3. Norvasc 5 mg p.o. q. day. 4. Aspirin 81 mg p.o. q. day. 5. Azithromycin 250 mg IV q. day. 6. Dulcolax 10 mg p.o. q. day. 7. Cefepime 2 grams IV. 8. Benadryl 12.5 mg p.o. q.8 hours p.r.n. 9. Lidocaine p.r.n. 10. Zofran 4 mg p.o. q.6 hours p.r.n. 11. MiraLax 17 grams p.o. q. day. 12. Prednisone 40 mg p.o. q. day. 13. Senokot 2 tabs p.o. at bedtime p.r.n. ALLERGIES: PENICILLIN. SOCIAL HISTORY: She lives here locally with her daughter, who is quite supportive. She quit tobacco many years ago. Denies alcohol use. Her granddaughter is a PA student. FAMILY HISTORY: Negative for lung malignancies. REVIEW OF SYSTEMS: Otherwise, 10-point review of systems is negative. Please see the history of pre sent illness. PHYSICAL EXAMINATION: VITAL SIGNS: Temperature 98.7, pulse 76, respirations 16-20, O2 sat 100% on 2 liters nasal cannula, and blood pressure 155-65. GENERAL: She is slightly cachectic with bilateral temporal wasting, in no acute distress, quite plea anabel. HEENT: Extraocular muscles are intact. Sclerae are anicteric. NECK: Supple, without lymphadenopathy. CARDIOVASCULAR: Regular rhythm. LUNGS: Decreased breath sounds throughout consistent with COPD with some mild rhonchi bilaterally. ABDOMEN: Normoactive bowel sounds. Soft, nontender, nondistended. EXTREMITIES: No edema. LABORATORY DATA: White blood cell count 7.4, hemoglobin 11.3, platelets 392. Sodium 134, potassium 3.9, chloride 101, CO2 of 25, BUN 9, creatinine 0.7, glucose 89. BNP 516, troponin I 0.091. CT angiogram of the chest done on admission showed 3.2 cm subcarinal mass within the mediastinum. Th is could represent a lymph node, but is nonspecific. There is some associated main stem bronchi galina ation secondary to mass effect. A neoplasm arising from the airway is also a possibility. There is nonspecific bronchiectasis in the right middle and right lower lobes. ASSESSMENT: Ms. Ferguson is an 82-year-old female with history of tobacco use and acute onset short ness of breath, now resolved with: 1. 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 2. Hypoxia, shortness of breath, and chronic obstructive pulmonary disease. 3. History of tobacco use. 4. Elevation of troponin. PLAN: 1. Minor changes to the bronchoscopy scheduled for tomorrow. 2. We will follow up after the pathology back from the bronchoscopy. 3. I would recommend full staging with a PET scan as an outpatient, but I am not sure she will allow that she has been quite resistant to any imaging or treatment in the past. 4. We will follow peripherally.
[2017-12-13] MEDS: Azithromycin 500 MG in Sodium Chloride 0.9% 250 ML 250 ML IVPB SCH (11:17)
--- NOTE | 2017-12-13 22:45 | PDOC.PN ---
- Subjective Encounter Start Date: 12/13/17 Encounter Start Time: 14:00 Patient seen and examined for COPD flare/Resp failure. No new complaints except productive cough - improving. No overnight events - Objective Resuscitation Status: Resuscitation Status DNR:Do Not Resuscitate MAR Reviewed: Yes Vital Signs & Weight: Vital Signs (12 hours) Temp Pulse Resp BP Pulse Ox 12/13/17 20:00 97.6 F 83 18 120/64 96 12/13/17 17:59 80 14 97 12/13/17 12:50 81 12 Weight Weight 112 lb 12.8 oz I&O: 12/12/17 12/13/17 12/14/17 06:59 06:59 06:59 Intake Total 1480 1810 1850 Output Total 1150 875 4 Balance 661 929 5409 Result Diagrams: 12/12/17 04:28 12/12/17 04:28 Phys Exam - Physical Examination Constitutional: NAD Respiratory: no wheezing Gen rhonchi + Cardiovascular: RRR, no rub Gastrointestinal: soft, non-tender, positive bowel sounds Musculoskeletal: no edema Dx/Plan (1) Acute and chronic respiratory failure ([id number]) Code(s): J96.20 - ACUTE AND CHR RESP FAILURE, UNSP W HYPOXIA OR HYPERCAPNIA Status: Acute Comment: improving (2) COPD exacerbation Code(s): J44.1 - CHRONIC OBSTRUCTIVE PULMONARY DISEASE W (ACUTE) EXACERBATION Status: Acute Comment: improving (3) Tracheal mass Code(s): J39.8 - OTHER SPECIFIED DISEASES OF UPPER RESPIRATORY TRACT Status: Acute Comment: Bronchoscopy in AM (4) Chronic respiratory failure Code(s): J96.10 - CHRONIC RESPIRATORY FAILURE, UNSP W HYPOXIA OR HYPERCAPNIA Status: Acute Qualifiers: Respiratory failure complication: hypoxia Qualified Code(s): J96.11 - Chronic respiratory failure with hypoxia (5) Elevated troponin Code(s): R74.8 - ABNORMAL LEVELS OF OTHER SERUM ENZYMES Status: Acute Comment: prob due to # 1 - Plan plan discussed w/ family, DVT proph w/SCDs Await Echo - Called Echo dept [id number] - spoke to Zac - He will text Dr Ferreira -: Cont Atbx/Steroids/Nebs/O2 -: Bronchoscopy in AM -: Cont to monitor Review of Systems - Review of Systems Cardiovascular: negative: chest pain, palpitations, orthopnea, paroxysmal nocturnal dyspnea, edema, light headedness, other Gastrointestinal: negative: Nausea, Vomiting, Abdominal Pain, Diarrhea, Constipation, Melena, Hematochezia, Other - Medications/Allergies Allergies/Adverse Reactions: Allergies Allergy/AdvReac Type Severity Reaction Status Date / Time Penicillins Allergy Verified 10/11/17 16:20 Medications: Current Medications Acetaminophen (Tylenol) 650 mg PO Q4H PRN PRN Reason: Headache/Fever or Pain Albuterol/Ipratropium (Duoneb) 3 ml NEB [id number] [facility] Last Admin: 12/13/17 17:59 Dose: 3 ml Albuterol/Ipratropium (Duoneb) 3 ml NEB [facility] Amlodipine Besylate (Norvasc) 5 mg PO DAILY [facility] Last Admin: 12/13/17 08:24 Dose: 5 mg Aspirin (Ecotrin) 81 mg PO DAILY-AC [facility] Last Admin: 12/13/17 08:25 Dose: 81 mg Bisacodyl (Dulcolax) 10 mg PO DAILYPRN PRN PRN Reason: Constipation Diphenhydramine HCl (Benadryl) 12.5 mg PO Q8H PRN PRN Reason: Insomnia Azithromycin 500 mg/ Sodium (Chloride) 250 mls @ 250 mls/hr IVPB 0800 [facility] Last Admin: 12/13/17 11:17 Dose: 250 mls Cefepime HCl 2 gm/ Sodium (Chloride) 100 mls @ 200 mls/hr IVPB Q12HR [facility] Last Admin: 12/13/17 21:24 Dose: 100 mls Lidocaine HCl (Xylocaine 4% Pf) 5 ml [facility] Ondansetron HCl (Zofran Odt) 4 mg PO Q6H PRN PRN Reason: Nausea/Vomiting Last Admin: 12/12/17 09:58 Dose: 4 mg Polyethylene Glycol (Miralax) 17 gm PO DAILY PRN PRN Reason: Constipation Prednisone (Prednisone) 40 mg PO QAM-[facility] Stop: 12/15/17 08:01 Last Admin: 12/13/17 08:25 Dose: 40 mg Senna (Senokot) 2 tab PO HSPRN PRN PRN Reason: Constipation Sodium Chloride (Flush - Normal Saline) 10 ml IVF Q12HR [facility] Last Admin: 12/13/17 21:25 Dose: 10 ml Sodium Chloride (Flush - Normal Saline) 10 ml IVF PRN PRN PRN Reason: Saline Flush
[2017-12-14] MEDS: Aspirin 81 mg Enteric Coated Tablet PO SCH ×2 (07:09→07:10)
[2017-12-14] MEDS: Cefepime 2 GM in Sodium Chloride 0.9% 100 ML IVPB SCH ×2 (08:28→20:53)
[2017-12-14] MEDS: Azithromycin 500 MG in Sodium Chloride 0.9% 250 ML 250 ML IVPB SCH (08:28)
[2017-12-14] MEDS ORDERED: Midazolam HCl 2 mg/2 ml Vial ONE (11:48)
[2017-12-14] MEDS ORDERED: Fentanyl 100 MCG/2 ML VIAL ONE (11:57)
--- NOTE | 2017-12-14 12:44 | PRG ---
DATE OF SERVICE: 12/10/2017 SERVICE: Pulmonary Medicine INTERVAL HISTORY: Overnight, the patient had a massive hemoptysis event She denies any chest pain, nausea, vomiting, fevers or chills. She had intermittent desaturation, but ultimately, the bleeding stopped and she was able to recover her breathing. She is currently on room air. She has no complai nts of dyspnea. PHYSICAL EXAMINATION: VITAL SIGNS: Afebrile, pulse 73, blood pressure 140/61, respirations 18, saturation 97% on room air. GENERAL: The patient is awake, alert, no apparent distress. LUNGS: Excellent air entry. There is prolonged expiratory phase. I do not appreciate wheezing, rho nchi or crackles. She is actually moving better air than she did 2 days ago. HEART: Normal rate, regular. ABDOMEN: Soft, nontender, nondistended. Bowel sounds are positive. MUSCULOSKELETAL: No cyanosis or clubbing. No pitting in the bilateral lower extremities. NEUROLOGIC: Nonfocal. ASSESSMENT: 1. Acute hypoxic respiratory failure. 2. Chronic obstructive pulmonary disease with acute exacerbation. 3. Tracheal mass. 4. Hemoptysis, massive. DISCUSSION AND PLAN: We will proceed with bronchoscopy today. Hopefully, we will be able to provide the patient with an answer for what is occurring. I will try to touch base with the family after th e procedure and let them know what I discover. Pulmonary will continue to follow along for the time being. She will need to remain in the hospital for at least 24 hours after this bronchoscopy to watc h for significant bleeding events.
[2017-12-14] MEDS ORDERED: Albuterol Sulfate 1.25 MG/3 ML NEB ONE (13:28)
[2017-12-14] MEDS ORDERED: Ondansetron HCl/PF 4 MG/2 ML Vial ONE (13:30)
[2017-12-14] MEDS ORDERED: PROPOFOL 200 MG/20 ML VIAL ONE (13:30)
[2017-12-14] MEDS ORDERED: PHENYLEPHRINE-NS 100 MCG/ML 10 ML SYRINGE ONE (13:30)
[2017-12-14] MEDS: Amlodipine 5 MG TAB PO SCH (16:36)
[2017-12-14] MEDS: predniSONE 20 MG TAB PO SCH (16:37)
--- NOTE | 2017-12-14 16:53 | PDOC.PN ---
- Subjective Encounter Start Date: 12/14/17 Encounter Start Time: 16:52 Ms. Ferguson was seen today in follow-up of COPD exacerbation, and mediastinal mass. She has returned from bronchoscopy, and is sitting up in bed eating. She does not have any complaints . - Objective Resuscitation Status: Resuscitation Status DNR:Do Not Resuscitate MAR Reviewed: Yes Vital Signs & Weight: Vital Signs (12 hours) Temp Pulse Resp BP BP Pulse Ox 12/14/17 16:36 75 150/62 H 12/14/17 14:49 98.5 F 74 22 H 147/51 H 91 L 12/14/17 08:53 98.9 F 73 18 140/61 97 12/14/17 08:00 98.9 F 73 18 12/14/17 06:38 120 H 24 H 94 L Weight Admit Weight 112 lb 12.8 oz Weight 112 lb 12.8 oz I&O: 12/13/17 12/14/17 12/15/17 06:59 06:59 06:59 Intake Total 1810 0 Output Total 875 4 Balance 935 2065 Result Diagrams: 12/12/17 04:28 12/12/17 04:28 Phys Exam - Physical Examination HEENT: PERRLA Respiratory: no rales + upper airway noise, and rhonchi, mild bilaterally Cardiovascular: RRR, no significant murmur, no rub Gastrointestinal: soft, non-tender, positive bowel sounds Musculoskeletal: no edema, pulses present Neurological: non-focal Dx/Plan (1) Mediastinal mass Status: Acute (2) Acute and chronic respiratory failure ([id number]) Code(s): J96.20 - ACUTE AND CHR RESP FAILURE, UNSP W HYPOXIA OR HYPERCAPNIA Status: Acute Comment: improving (3) COPD exacerbation Code(s): J44.1 - CHRONIC OBSTRUCTIVE PULMONARY DISEASE W (ACUTE) EXACERBATION Status: Acute Comment: improving (4) Hypertension Code(s): I10 - ESSENTIAL (PRIMARY) HYPERTENSION Status: Chronic - Plan * COPD exacerbation- stable * Mediastinal Mass- she is s/p bronchoscopy, and awaiting the results * HTN-blood pressure is stable.
--- NOTE | 2017-12-14 21:09 | OP ---
DATE OF SERVICE: 12/14/2017 SERVICE: Pulmonary Medicine. PROCEDURE: Fiberoptic bronchoscopy with: 1. Visual airway inspection. 2. Endobronchial biopsy. PREPROCEDURE DIAGNOSIS: Tracheal mass. POSTPROCEDURE DIAGNOSIS: Tracheal mass. PROCEDURE HOSE SPRAYER: True Miranda M.D. For list of medications, please refer to anesthesia documentation. PREANESTHESIA ASSESSMENT: H and P had been performed. The patient's medications and allergies were reviewed. Informed consent was obtained after discussing the risks, benefits, and rationale for perf orming the procedure as well as alternative options. DESCRIPTION OF PROCEDURE: A timeout was performed, identifying the correct procedure and patient wit h name and date of . A diagnostic fiberoptic bronchoscope was introduced through the existing e ndotracheal tube. A tracheobronchial tree inspection was carried out with clear identification of th e left upper lobe, lingula, left lower lobe. There was a large tracheal mass that was obstructing en trance into the right main stem bronchus. I could see distal to the mass into the right bronchus int ermedius, but I could not pass my scope beyond this lesion. The takeoff to the right upper lobe coul d not be identified. The diagnostic scope was able to pass distal into the left main stem bronchus. Bronchial washing of the trachea was obtained. A single endobronchial biopsy was obtained which res ulted in significant bleeding. Topical epinephrine was required in order to stop the bleeding. Ulti mately, hemostasis was verified and the bronchoscope was removed from the patient. FINDINGS: 1. Large tracheal mass was identified at the level of the julio c, which caused an 80% reduction in t he lumen of the right main stem bronchus, and a 10% reduction in the lumen of the left main stem bron chus. The scope could pass distal to the mass in the left main stem bronchus, but I could not advanc e the scope into the right main stem bronchus. 2. Secretions were minimal and thin. SPECIMENS OBTAINED: 1. Bronchial washing for pathology. 2. Endobronchial biopsy for pathology. COMPLICATIONS: Significant endobronchial bleeding occurred which was subsequently stopped with multi ple aliquots of epinephrine. ESTIMATED BLOOD LOSS: 150 mL. DISPOSITION: The patient will go to the postanesthesia care unit where we will carefully extubate he r and watch her for a period of time before sending her back to the floor. FLUOROSCOPY TIME: None.
[2017-12-15] MEDS: Aspirin 81 mg Enteric Coated Tablet PO SCH (07:25)
[2017-12-15] MEDS: Cefepime 2 GM in Sodium Chloride 0.9% 100 ML IVPB SCH (08:32)
[2017-12-15] MEDS: predniSONE 20 MG TAB PO SCH (08:33)
[2017-12-15] MEDS: Amlodipine 5 MG TAB PO SCH (08:33)
[2017-12-15] MEDS: Azithromycin 500 MG in Sodium Chloride 0.9% 250 ML 250 ML IVPB SCH (09:26)
--- NOTE | 2017-12-15 13:47 | CON ---
DATE OF CONSULTATION: 12/15/2017 REASON FOR CONSULTATION: Ms. Ferguson is an 82-year-old female, who has likely been diagnosed with a stage III A, T4N0M0 lung carcinoma. I am asked to see her for consideration of radiation therapy b ecause of her hemoptysis. HISTORY OF PRESENT ILLNESS: Ms. Lagunas states that a week ago Wednesday, she went to Urgent Care an d was thought that she might have pneumonia. She was placed on antibiotics. At that time, she was h aving some streaks of hemoptysis with her cough. However, this past Wednesday, she woke up very short of breath with her O2 saturation being in the 80s. She was having cough with some hemoptysis. She was therefore brought to the emergency room where she was admitted for further workup and evaluation. She did undergo CT scan of the chest, which suggested a subcarinal/carinal mass that was compressin g the right main stem bronchus. This was concerning for possible malignancy. Yesterday, she underwe nt a bronchoscopy and had a biopsy by Dr. Miranda. However, with her single biopsy, she had a large amount of hemoptysis. The patient and her [id number] state that she actually had a large amount of hemoptysis the morning prior to the procedure. Therefore, Dr. Miranda only performed one biopsy because of the bleeding. The bleeding was subsequently controlled and she was returned to her room. She has had much less hemoptysis since then. Pathology is currently pending. She has been seen by Dr. Clifford and I have been asked to see the patient to discuss her possible treatment options. She does inform me that her breathing is better. She continues on oxygen and continues to have a cough. She has been on oxygen since September when she was originally diagnosed with pneumonia. She denies any weight loss. She has no chest pain. She has no difficulty with swallowing and she denies any other areas of pain. She voices no other complaints. PAST MEDICAL HISTORY: 1. Anemia. 2. Hypertension. 3. Chronic obstructive pulmonary disease. 4. Status post appendectomy. 5. Status post hysterectomy/bilateral salpingo-oophorectomy. 6. She denies other medical or surgical problems. MEDICATIONS: DuoNeb inhaler, Norvasc, azithromycin, cefepime, and Senokot. ALLERGIES: PENICILLIN, which caused a rash. SOCIAL HISTORY: The patient previously smoked up to one-half pack per day. She smoked up until Apr when she was diagnosed with pneumonia. She has no alcohol use at the present time. 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 She is a . She is presently living with her son and daughter-in- law in [place], [place]. FAMILY HISTORY: Her mother possibly had some type of cancer, but of other related causes in her 80s many years after the possible cancer. Her father possibly had a liver tumor. He at age 76 . There is no other family history of malignancy. REVIEW OF SYSTEMS: Twelve-system review of systems is otherwise negative. PHYSICAL EXAMINATION: VITAL SIGNS: Height 5 feet 5 inches, weight 112 pounds, blood pressure 124/63, pulse is 77, respirat ions are 20, temperature is 98.5, and O2 saturation 100% on 3 liters nasal cannula. GENERAL: She is alert and oriented and appears her stated age. Karnofsky performance status is an 7 0%. EYES: Pupils are equal, round, and reactive to light and disk movements are intact. ENT: Oral cavity and oropharynx normal without lesion or erythema. Palate elevates symmetrically. Gingiva is intact. NECK: Supple, without cervical or supraclavicular adenopathy. No thyromegaly. Larynx midline. LUNGS: Breathing nonlabored. Clear to auscultation and percussion. HEART: Regular rhythm without murmur. No lower extremity edema. Radial and pedal pulses are good. BACK: No tenderness on fist percussion of her spine. LYMPHATIC: No axillary or inguinal adenopathy. EXTREMITIES: Without cyanosis or clubbing. ABDOMEN: Bowel sounds present. Soft, nontender, nondistended, without mass or hepatosplenomegaly. Liver percussed to normal size. SKIN: Without rash or purpura. NEUROLOGIC: Cranial nerves II-XII grossly intact. Motor strength is 5/5 in both upper and lower ext remities in all muscle groups tested. Reflexes are normal and symmetrical. Gait was not tested. LABORATORY AND X-RAY FINDINGS: CBC today revealed a white blood cell count 7400 with hemoglobin 11.3 , hematocrit of 34.0, platelet count 392,000. Chemistry group showed a sodium of 134. Creatinine wa s normal at 0.78. Electrolytes were otherwise normal. Beta natriuretic peptide was elevated at 516. Troponin one was elevated at 0.91. Biopsy is currently pending. RADIOLOGIC: CT scan of the chest was personally reviewed. There is no discrete lung mass. She has a mass in the subcarinal region, which is compressing the main stem bronchus. This measured at least 3.1 cm in size. I do not see any mediastinal or hilar adenopathy. ASSESSMENT: Ms. Ferguson is an 82-year-old female with a likely stage III A, T4N0M0 lung cancer. I suspect this is going to be nonsmall cell cancer. Hopefully, we were able to get the tissue diagnos is from the one biopsy that was able to be obtained. She did have 80% narrowing of her right main st em bronchus and 20% narrowing of the left main stem bronchus from her disease at bronchoscopy. PLAN: I have discussed the case with Dr. Clifford and Dr. Miranda. I have also discussed the case wi th Ms. Ferguson and her family regarding her diagnosis, prognosis, prognostic factors, and treatment options. We discussed the likely diagnosis of nonsmall cell cancer of the lung. Her problem now is that she is having large volume hemoptysis. She is also having airway narrowing. Because of her in volvement of the julio c and her age, she would not be a surgical candidate for resection. Dr. Lam astudillo has some concerns that treatment may cause her to obstruct her right main stem bronchus. This is c ertainly possible, but without treatment, she is going to obstruct her right main stem bronchus. I a m not sure she would be a candidate for stents and she has involvement of both the right and left joao n stem bronchus. Additionally, stent could be a fairly dangerous given how much hemoptysis that she has. I think the likelihood that any radiation therapy would cause swelling, which would include her bronchus would be quite low. I think we should emergently start radiation therapy and hopes control ling her hemoptysis and shrinking her disease. We will proceed at somewhat a normal fractionation re gimen to try and minimize any risk of swelling from the radiation obstructing the bronchus. This rec ommendation was made to Ms. Ferguson and her family regarding radiation therapy. The logistics of r adiation as well as the benefits and risks of treatment were discussed. Side effects would include b ut not be limited to skin reaction, fatigue, lower blood counts, difficulty or pain with swallowing, weight loss, possible need for PEG tube for nutritional support, possible obstructive symptomatology. Possible worsening of cough, small risk of radiation pneumonitis, and small risk of damage to any o ther structure, which receives radiation therapy. I will discuss the case with Dr. Clifford to see wh ether she would plan on any concurrent chemotherapy once the radiation is initiated. Time was taken to answer all of her questions regarding her treatment options. She understands the need to emergent ly initiate the treatment because of her hemoptysis and potential for life threatening obstruction. She is agreeable to proceed with radiation as recommended. Arrangements will be made for her to unde rgo simulation shortly.
--- NOTE | 2017-12-15 17:02 | PDOC.PN ---
- Subjective Encounter Start Date: 12/15/17 Encounter Start Time: 17:01 Ms. Ferguson was seen today in follow-up of hemoptysis, and lung mass. She has not had as much bleeding today. She says she is breaathing better, and denies chest pain. - Objective Resuscitation Status: Resuscitation Status DNR:Do Not Resuscitate MAR Reviewed: Yes Vital Signs & Weight: Vital Signs (12 hours) Temp Pulse Resp BP BP Pulse Ox 12/15/17 11:34 98.5 F 77 20 124/63 100 12/15/17 08:33 78 135/70 12/15/17 08:13 98.2 F 99 20 135/70 99 12/15/17 08:00 98.2 F 78 20 99 12/15/17 06:59 99 12/15/17 06:56 78 20 99 Weight Admit Weight 112 lb 12.8 oz Weight 112 lb 12.8 oz I&O: 12/14/17 12/15/17 12/16/17 06:59 06:59 06:59 Intake Total 2069 1360 Output Total 4 Balance 2065 1360 Result Diagrams: 12/12/17 04:28 12/12/17 04:28 Phys Exam - Physical Examination HEENT: PERRLA Respiratory: no rales, no rhonchi, wheezing present + occasional wheeze, no rales Cardiovascular: RRR, no significant murmur, no rub Gastrointestinal: soft, non-tender, no distention, positive bowel sounds Musculoskeletal: no edema Dx/Plan (1) Mediastinal mass Status: Acute (2) Acute and chronic respiratory failure ([id number]) Code(s): J96.20 - ACUTE AND CHR RESP FAILURE, UNSP W HYPOXIA OR HYPERCAPNIA Status: Acute Comment: improving (3) COPD exacerbation Code(s): J44.1 - CHRONIC OBSTRUCTIVE PULMONARY DISEASE W (ACUTE) EXACERBATION Status: Acute Comment: improving (4) Hypertension Code(s): I10 - ESSENTIAL (PRIMARY) HYPERTENSION Status: Chronic - Plan * Mediastinal mass- this is suspected Lung cancer, and the plan is to proceed with radiation therapy due to impending bronchial obstruction * COPD- stable * HTN- blood pressure is stable * Plan is for discharge tomorrow if clinically stable around the time she is scheduled to have her first radiation treatment.
--- NOTE | 2017-12-15 18:52 | PRG ---
DATE OF SERVICE: 12/15/2017 SERVICE: Pulmonary Medicine. INTERVAL HISTORY: The patient is doing fine from a respiratory standpoint. He denies any chest pain , nausea, vomiting, fevers or chills. Otherwise, there has been no interval change to her condition. She is coughing up a little bit of blood. She has had no events like she did previously. OBJECTIVE: VITAL SIGNS: Afebrile, pulse 77, blood pressure 124/63, respirations 20, saturation 100% on 2 liters nasal cannula. GENERAL: The patient is awake, alert, no apparent distress. HEENT: Normocephalic, atraumatic. Sclerae are white, conjunctivae pink. Oral mucosa is moist witho ut lesions. LUNGS: Decent air entry. No prolonged expiratory phase or wheezing is appreciated. There is a tom le bit of rhonchi. HEART: Normal rate, regular. ABDOMEN: Soft, nontender, nondistended. Bowel sounds positive. MUSCULOSKELETAL: No cyanosis or clubbing. No pitting in the bilateral lower extremities. NEUROLOGIC: Grossly nonfocal. LABORATORY: WBC 7.4, hemoglobin 9.3, platelets 392,000. Basic metabolic profile is essentially unre markable otherwise. Respiratory syncytial virus, influenza, blood cultures remain negative. IMAGING: Echocardiogram demonstrates normal ejection fraction. There is mild diastology. Left atri um is moderately dilated. Normal pulmonary artery pressures are identified. ASSESSMENT: 1. Acute hypoxic respiratory failure. 2. Chronic obstructive pulmonary disease with acute exacerbation. 3. Tracheal mass. 4. Hemoptysis, massive, DISCUSSION AND PLAN: From a purely lung standpoint, the patient is stable for transition out of the hospital. We will convert her over to p.o. medications. She has completed her azithromycin course b etween outpatient and inpatient medications. She will need 3 more days of Omnicef. Pulmonary will c ontinue to follow while she remains in house, but when she has a plan in place, she can be considered for transition out of the hospital.
[2017-12-15] MEDS: Cefdinir 300 MG CAP PO SCH (20:35)
[2017-12-16] MEDS: Amlodipine 5 MG TAB PO SCH (07:34)
[2017-12-16] MEDS: Cefdinir 300 MG CAP PO SCH (07:36)
[2017-12-16] MEDS: Aspirin 81 mg Enteric Coated Tablet PO SCH (07:36)
[2017-12-16 07:37] VITALS: BP 149/66
[2017-12-16 07:38] VITALS: TEMP 98.8
--- NOTE | 2017-12-16 13:20 | PDOC.PN ---
- Subjective Encounter Start Date: 12/16/17 Encounter Start Time: 08:00 Pt seen for followup re: mediastinal mass. Says she feels better. Denies chest pain, shortness of breath, fevers or chills. - Objective Resuscitation Status: Resuscitation Status DNR:Do Not Resuscitate MAR Reviewed: Yes Vital Signs & Weight: Vital Signs (12 hours) Temp Pulse Resp BP BP Pulse Ox 12/16/17 08:00 98.8 F 71 16 94 L 12/16/17 07:37 98.8 F 71 16 149/66 H 94 L 12/16/17 07:34 77 149/66 H 12/16/17 06:47 93 L 12/16/17 06:45 71 16 93 L 12/16/17 02:46 95 Weight Admit Weight 112 lb 12.8 oz Weight 112 lb 12.8 oz I&O: 12/15/17 12/16/17 12/17/17 06:59 06:59 06:59 Intake Total 1360 1290 Balance 1360 1290 Result Diagrams: 12/12/17 04:28 12/12/17 04:28 Additional Labs: labs reviewed by me Phys Exam - Physical Examination Constitutional: NAD HEENT: moist MMs Neck: supple Respiratory: clear to auscultation bilateral Cardiovascular: RRR Gastrointestinal: soft Neurological: moves all 4 limbs Psychiatric: normal affect Skin: no rash Dx/Plan (1) Mediastinal mass Status: Acute Comment: pt to have radiation therapy (2) Acute and chronic respiratory failure ([id number]) Code(s): J96.20 - ACUTE AND CHR RESP FAILURE, UNSP W HYPOXIA OR HYPERCAPNIA Status: Acute Comment: clinically improved (3) COPD exacerbation Code(s): J44.1 - CHRONIC OBSTRUCTIVE PULMONARY DISEASE W (ACUTE) EXACERBATION Status: Acute Comment: clinically improved (4) Hypertension Code(s): I10 - ESSENTIAL (PRIMARY) HYPERTENSION Status: Chronic Comment: Monitor vital signs, titrate antihypertensives as needed - Plan * . Review of Systems - Review of Systems Respiratory: Cough, Sputum. negative: Dry, Shortness of Breath, Hemoptysis, SOB with Excertion, Pleuritic Pain, Wheezing Cardiovascular: negative: chest pain, palpitations, orthopnea, paroxysmal nocturnal dyspnea, edema, light headedness - Medications/Allergies Allergies/Adverse Reactions: Allergies Allergy/AdvReac Type Severity Reaction Status Date / Time Penicillins Allergy Verified 10/11/17 16:20 Medications: Current Medications Acetaminophen (Tylenol) 650 mg PO Q4H PRN PRN Reason: Headache/Fever or Pain Albuterol/Ipratropium (Duoneb) 3 ml NEB [id number] [facility] Last Admin: 12/16/17 12:29 Dose: 3 ml Albuterol/Ipratropium (Duoneb) 3 ml NEB WILLCALL [facility] Amlodipine Besylate (Norvasc) 5 mg PO DAILY [facility] Last Admin: 12/16/17 07:34 Dose: 5 mg Aspirin (Ecotrin) 81 mg PO DAILY-AC [facility] Last Admin: 12/16/17 07:36 Dose: Not Given Bisacodyl (Dulcolax) 10 mg PO DAILYPRN PRN PRN Reason: Constipation Cefdinir (Omnicef) 300 mg PO BID [facility] Stop: 12/18/17 21:01 Last Admin: 12/16/17 07:36 Dose: 300 mg Diphenhydramine HCl (Benadryl) 12.5 mg PO Q8H PRN PRN Reason: Insomnia Lidocaine HCl (Xylocaine 4% Pf) 5 ml NEB WILLCALL [facility] Ondansetron HCl (Zofran Odt) 4 mg PO Q6H PRN PRN Reason: Nausea/Vomiting Last Admin: 12/12/17 09:58 Dose: 4 mg Polyethylene Glycol (Miralax) 17 gm PO DAILY PRN PRN Reason: Constipation Senna (Senokot) 2 tab PO HSPRN PRN PRN Reason: Constipation Sodium Chloride (Flush - Normal Saline) 10 ml IVF Q12HR [facility] Last Admin: 12/16/17 07:43 Dose: 10 ml Sodium Chloride (Flush - Normal Saline) 10 ml IVF PRN PRN PRN Reason: Saline Flush
[2017-12-16 14:07] VITALS: BMI 17.9
--- NOTE | 2017-12-16 15:47 | PRG ---
DATE OF SERVICE: 12/16/2017 SERVICE: Pulmonary Medicine. INTERVAL HISTORY: The patient is doing fine from a respiratory standpoint. Her hemoptysis continues to taper off and now she is only coughing up some old blood. She denies any chest pain, nausea, vom iting, fevers or chills. She did not have any coughing last night, primarily because she was sitting upright for the evening. She got casted yesterday. She will have her first radiation therapy today . PHYSICAL EXAMINATION: VITAL SIGNS: Afebrile, pulse 71, blood pressure 149/66, respirations 16, saturation 94% on 3 liters nasal cannula. GENERAL: The patient is awake, alert, no apparent distress. LUNGS: Decent air entry. There is no prolonged expiratory phase. No wheezing is present. Rhonchi are there, but change with cough. HEART: Normal rate, regular. ABDOMEN: Soft, nontender, nondistended. Bowel sounds are positive. MUSCULOSKELETAL: No cyanosis or clubbing. There is no pitting in the bilateral lower extremities. NEUROLOGIC: Grossly nonfocal. 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 The cytology was ex traordinarily hematogenous. That being said, poorly differentiated squamous carcinoma was also ident ified there. ASSESSMENT: 1. Acute hypoxic respiratory failure. 2. Chronic obstructive pulmonary disease with acute exacerbation. 3. 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 4. Hemoptysis, massive. DISCUSSION AND PLAN: I checked laboratories this morning before I saw her and the pathology had not resulted. I then talked to the patient, told her that I had not seen the pathology back yet. During my dictation, we do have squamous cell carcinoma. That being said, I have not been able to tell the patient that at this time. From my perspective, she is stable for transition out of the hospital. She remains at extraordinarily high risk for sudden hemoptysis type of event that could be life threa tening. We are going to get underway with radiation therapy as soon as possible. The patient will r eturn to see me in clinic if she develops any increasing respiratory difficulties.
--- NOTE | 2017-12-17 02:20 | DIS ---
DATE OF ADMISSION: 12/11/2017 DATE OF DISCHARGE: 12/16/2017 PRIMARY CARE PROVIDER: Britany Overton M.D. DISCHARGE DIAGNOSES: 1. Acute on chronic hypoxic respiratory failure. 2. Chronic obstructive pulmonary disease exacerbation. 3. Tracheal mass. 4. Hemoptysis. CONSULTATIONS DURING THIS HOSPITALIZATION: Pulmonology, Dr. Miranda; Oncology, Dr. Clifford; and Radi [facility] Oncology, Dr. Fernandez. CONDITION OF PATIENT ON THE DAY OF DISCHARGE: Stable. I assessed Ms. Ferguson on the day of discha rge. Please refer to my daily hospitalist progress note for further details regarding this face-to-f rebeca encounter. DISCHARGE MEDICATIONS: Her aspirin was discontinued secondary to hemoptysis. She is being discharge d home on Norvasc 5 mg daily and Omnicef 300 mg 2 times a day for 5 more doses. HOSPITAL COURSE: Ms. Ferguson is a pleasant 82-year-old lady who was admitted to [facility] on 12/11/2017 for acute on chronic hypoxic respiratory failure secondary to chronic o bstructive pulmonary disease exacerbation. She was seen by Pulmonology Service. She underwent CT sc an of the chest on 12/11/2017, which showed a mass in the mediastinum. This was associated with the trachea and main stem bronchi and the neoplasm arising from the airway was a possibility. She also h ad a right renal cyst. On 12/14/2017, she underwent bronchoscopy. She had endobronchial biopsy. A large tracheal mass was identified at the level of the julio c, which caused 80% reduction in the lume n of the right main stem bronchus and a 10% reduction in the lumen of the left main stem bronchus. S he had significant endobronchial bleeding, which was subsequently stopped with multiple aliquots of e pinephrine. Pathology report of the bronchial washings showed poorly differentiated squamous carcinoma. Biopsy r eport on the surgical specimen of the tracheal mass showed invasive poorly differentiated squamous ca rcinoma. She was seen by Medical Oncology and Radiation Oncology Services. She is being discharged to follow up with a radiation oncologist later today for radiation therapy. Many thanks for allowing me to participate in your patient's care. Please feel free to contact me wi th any questions or concerns. DISCHARGE DESTINATION: Home. TOTAL AMOUNT OF TIME SPENT COORDINATING THIS DISCHARGE: 33 minutes.
== END 2017-12-16 16:10 | disposition home or self-care (01) | DRG 189 ==
LOC: ERS 06:57 → ERHOLD 09:47 → IMCU/EMU 10:39 → T4-A 12-12 16:38
PROVIDERS: ADMIT Internal Medicine; ATTEND Internal Medicine
PROC: 0BB18ZX Excision of Trachea, Via Natural or Artificial Opening Endoscopic, Diagnostic (ICD-10-PCS; principal; 2017-12-14)
PROC: 0BD78ZX Extraction of Left Main Bronchus, Via Natural or Artificial Opening Endoscopic, Diagnostic (ICD-10-PCS; 2017-12-14)
PROC: 3E0F8GC Introduction of Other Therapeutic Substance into Respiratory Tract, Via Natural or Artificial Opening Endoscopic (ICD-10-PCS; 2017-12-14)
DX: J96.21 Acute and chronic respiratory failure with hypoxia (principal); J44.1 Chronic obstructive pulmonary disease with (acute) exacerbation; C34.82 Malignant neoplasm of overlapping sites of left bronchus and lung; C34.81 Malignant neoplasm of overlapping sites of right bronchus and lung; R04.2 Hemoptysis; I24.8 Other forms of acute ischemic heart disease; J95.61 Intraoperative hemorrhage and hematoma of a respiratory system organ or structure complicating a respiratory system procedure; J39.8 Other specified diseases of upper respiratory tract; I10 Essential (primary) hypertension; D50.9 Iron deficiency anemia, unspecified; Z66 Do not resuscitate; N28.1 Cyst of kidney, acquired; Z99.81 Dependence on supplemental oxygen; Z87.891 Personal history of nicotine dependence; Y84.8 Other medical procedures as the cause of abnormal reaction of the patient, or of later complication, without mention of misadventure at the time of the procedure; Y82.8 Other medical devices associated with adverse incidents; Y92.234 Operating room of hospital as the place of occurrence of the external cause
CPT/HCPCS: 36415; 71045; 71260; 77014; 77290; 77307; 77334; 80048; 80053; 82330; 82553; 82803; 83605; 83880; 84484; 85025; 87040; 87804; 87807; 88112; 88305; 88341; 88342; 93005; 93306; 94640; 96365; A4216; J0456; J0692; J1650; J2001; J2250; J2405; J2704; J2920; J3010; J7050; J7506; J7620; Q0162

== ENCOUNTER 2017-12-30 08:45 | Outpatient (CLI) | payer MEDICARE ==
--- NOTE | 2017-12-30 13:58 | PET ---
PET CT: HISTORY: An 83-year-old female with recently diagnosed lung cancer (invasive poorly differentiated squamous ce ll carcinoma). Exam requested for initial staging. TECHNIQUE: PET scanning with CT attenuation correction is performed from the base of the brain through the proxi mal thighs following the intravenous administration of 12.2 mCi [id number] in the left an tecubital fossa. Imaging was performed after an uptake interval of 53 minutes. CORRELATION: CT chest dated 12/11/17. FINDINGS: There is hypermetabolic activity in the subcarinal mediastinal mass noted on the CT scan with an SUV of 10.6. Also noted is a small hypermetabolic right posterior hilar lymph node with an SUV of 6.7. No hypermetabolic lung masses, left hilar lymph nodes, cervical, axillary, or abdominopelvic lymph no doris, liver or skeletal lesions are seen. There is physiologic activity in the GI and tracts, larynx, and the visualized portions of the bra in. The CT scan used for attenuation correction demonstrates no evidence of pleural effusions or ascites. IMPRESSION: Findings in the mediastinum and right hilum are consistent with malignancy/metastatic disease. POS: ABHIJIT
== END 2017-12-30 08:46 | disposition home or self-care (01) ==
LOC: PET 08:45
PROVIDERS: ATTEND Internal Medicine Hematology & Oncology
DX: C34.90 Malignant neoplasm of unspecified part of unspecified bronchus or lung (principal)
CPT/HCPCS: 78815; A9552

== ENCOUNTER 2018-03-03 07:41 | Outpatient (CLI) | payer MEDICARE ==
--- NOTE | 2018-03-03 10:44 | PET ---
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 Patient h ad last chemo/radiation therapy in January 2018. Exam requested for restaging. TECHNIQUE: PET scanning with CT attenuation correction was performed from the base of the brain through the prox imal thighs following the intravenous administration of 10.6 mCi [id number] in the right antecubital fos sa. Imaging was performed after an uptake interval of 61 minutes. COMPARISON: PET CT dated 12/30/17. FINDINGS: There has been interval resolution of the hypermetabolic subcarinal mediastinal mass and right strong nitric operator ior hilar lymph node since the last exam. No reddy hypermetabolism is seen in the neck, mediastinum, hilar, axillary, or abdominopelvic regions. There is a new 3.0 cm hypermetabolic right upper lobe lung mass with a SUV of 6. No hypermetabolic liver, adrenal, or skeletal lesions are seen. There is physiologic activity in the GI and tracts, larynx, heart, and the visualized portions of the brain. The CT scan used for attenuation correction demonstrates no evidence of pleural effusions or ascites. IMPRESSION: Mixed response to therapy since 12/30/17. New hypermetabolic lung mass in the right upper lobe. POS: [facility]
== END 2018-03-03 07:42 | disposition home or self-care (01) ==
LOC: PET 07:41
PROVIDERS: ATTEND Internal Medicine Hematology & Oncology
DX: C34.90 Malignant neoplasm of unspecified part of unspecified bronchus or lung (principal); R91.8 Other nonspecific abnormal finding of lung field
CPT/HCPCS: 78815; A9552

== ENCOUNTER 2018-03-24 15:23 | Outpatient (CLI) | payer MEDICARE ==
--- NOTE | 2018-03-24 17:36 | RAD ---
TWO VIEWS CHEST: DATE: 03/24/2018. PROVIDED CLINICAL HISTORY: Dyspnea. FINDINGS: Comparison is made with the study dated 12/11/2017. Cardiac silhouette is upper limits of normal in s ize. Vascular calcification involves the aortic arch. Prominent emphysematous changes are seen. Bi basilar interstitial opacities appear similar. No definite focal consolidation, pleural fluid, or pn eumothorax. IMPRESSION: Conspicuous emphysematous change. No evidence for an acute cardiopulmonary process. POS: [facility]
== END 2018-03-24 15:24 | disposition home or self-care (01) ==
LOC: RAD 15:23
PROVIDERS: ATTEND Internal Medicine
DX: R06.00 Dyspnea, unspecified (principal); J44.9 Chronic obstructive pulmonary disease, unspecified
CPT/HCPCS: 71046; 94010; 94727; 94729

== ENCOUNTER 2018-04-08 11:04 | Day surgery (SDC) | payer MEDICARE ==
[2018-04-08] MEDS ORDERED: Sodium Chloride 0.9% 20 ML ONE (11:10)
[2018-04-08 12:06] VITALS: BP 178/74; TEMP 98.3
[2018-04-08] MEDS ORDERED: DURVALUMAB IV SCH (12:30)
[2018-04-08] MEDS ORDERED: SODIUM CHLORIDE 0.9% IV SCH (12:30)
== END 2018-04-08 16:27 | disposition home or self-care (01) ==
LOC: ONC/OP 11:04
PROVIDERS: ATTEND Internal Medicine Hematology & Oncology
DX: Z51.11 Encounter for antineoplastic chemotherapy (principal); C34.81 Malignant neoplasm of overlapping sites of right bronchus and lung; D50.8 Other iron deficiency anemias; N18.3 Chronic kidney disease, stage 3 (moderate); R63.4 Abnormal weight loss; F17.291 Nicotine dependence, other tobacco product, in remission; Z88.0 Allergy status to penicillin
CPT/HCPCS: 96413; C9492; J7050

== ENCOUNTER → 2018-04-20 | Day surgery (SDC) | payer MEDICARE ==
[~2018-04-20] MED LIST: DURVALUMAB IV SCH; SODIUM CHLORIDE 0.9% IV SCH; Sodium Chloride 0.9% 20 ML ONE
[2018-04-20 14:39] VITALS: BP 147/70; TEMP 98.7
== END ==
LOC: ONC/OP 13:28
PROVIDERS: ATTEND Internal Medicine Hematology & Oncology
DX: Z51.11 Encounter for antineoplastic chemotherapy (principal); C34.81 Malignant neoplasm of overlapping sites of right bronchus and lung; D50.8 Other iron deficiency anemias; N18.3 Chronic kidney disease, stage 3 (moderate); F17.291 Nicotine dependence, other tobacco product, in remission; R63.4 Abnormal weight loss; R05 Cough; Z88.0 Allergy status to penicillin
CPT/HCPCS: 96413; C9492; J7050

== ENCOUNTER 2018-05-04 12:31 | Day surgery (SDC) | payer MEDICARE ==
[2018-05-04] MEDS ORDERED: SODIUM CHLORIDE 0.9% IV SCH ×2 (13:15)
[2018-05-04] MEDS ORDERED: DURVALUMAB IV SCH ×2 (13:15)
[2018-05-04] MEDS ORDERED: Sodium Chloride 0.9% 20 ML ONE (14:24)
== END 2018-05-04 15:17 | disposition home or self-care (01) ==
LOC: ONC/OP 12:31
PROVIDERS: ATTEND Internal Medicine Hematology & Oncology
DX: Z51.11 Encounter for antineoplastic chemotherapy (principal); C34.81 Malignant neoplasm of overlapping sites of right bronchus and lung; N18.3 Chronic kidney disease, stage 3 (moderate); F17.291 Nicotine dependence, other tobacco product, in remission; D50.8 Other iron deficiency anemias; Z88.0 Allergy status to penicillin
CPT/HCPCS: 96413; C9492; J7050

== ENCOUNTER 2018-05-19 13:56 | Day surgery (SDC) | payer MEDICARE ==
[2018-05-19] MEDS ORDERED: SODIUM CHLORIDE 0.9% IV SCH (15:45)
[2018-05-19] MEDS ORDERED: DURVALUMAB IV SCH (15:45)
[2018-05-19] MEDS ORDERED: Sodium Chloride 0.9% 20 ML ONE (18:02)
[2018-05-19 19:08] VITALS: BP 159/75; TEMP 97.7
== END 2018-05-19 19:51 | disposition home or self-care (01) ==
LOC: ONC/OP 13:56
PROVIDERS: ATTEND Internal Medicine Hematology & Oncology
DX: Z51.11 Encounter for antineoplastic chemotherapy (principal); C34.81 Malignant neoplasm of overlapping sites of right bronchus and lung; N18.3 Chronic kidney disease, stage 3 (moderate); D50.9 Iron deficiency anemia, unspecified; Z79.899 Other long term (current) drug therapy; Z88.0 Allergy status to penicillin
CPT/HCPCS: 96413; C9492; J7050

== ENCOUNTER 2018-05-30 07:28 | Outpatient (CLI) | payer MEDICARE ==
[2018-05-30] MEDS ORDERED: Iopamidol 370 76% 100 ML VIAL ONE (09:25)
--- NOTE | 2018-05-30 09:47 | CT ---
CT CHEST WITH CONTRAST: Date: 05/30/18 HISTORY: Lung cancer. COMPARISON: Multiple prior examinations, most recently 03/03/18. FINDINGS: Moderate background centrilobular emphysema. Increased AP dimension of the chest cavity. The previously noted right middle lobe 3.0 cm mass is not nearly as well defined as the prior examina tion from 03/03/18. There is only peripheral scarring adjacent to areas of bronchiectasis. No well-de fined mass is appreciated. Severe right middle lobe and right lower lobe bronchiectasis with chronic bronchial wall thickening. Bronchiectasis, as well as atelectatic changes, are present within the harpreet gula, similar. No pneumothorax. No effusion. There is a peripheral pleural based 4.0 mm nodule in the right lower lo be, axial image 79, which is similar to the comparison examination. No new suspicious pulmonary nodul e or mass. Thyroid unremarkable. No new mediastinal adenopathy. Pulmonary trunk is dilated at 33 mm. Dense calcifications of aorta. No aneurysmal dilatation. No evidence for dissection. Dense calcificat ions of the ostia of the renal arteries bilaterally. There is large volume mucus within the dilated mid esophagus. There are compression fractures of T8 w ith sclerosis and approximately 10-15% height loss, which is new. There is also a T12 compression fra cture which is healing. No suspicious lytic or blastic lesion of the skeleton. IMPRESSION: 1. Marked improvement of the right middle lobe previously described mass with only peripheral scarri ng remaining and improved central aeration. 2. No new suspicious pulmonary nodule or mass. 3. No significant adenopathy. 4. New compression fracture of T8 with approximately 10-15% anterior and mid vertebral body height l oss. POS: [facility]
== END 2018-05-30 07:29 | disposition home or self-care (01) ==
LOC: BICCT 07:28
PROVIDERS: ATTEND Internal Medicine Hematology & Oncology
DX: C34.81 Malignant neoplasm of overlapping sites of right bronchus and lung (principal); J98.4 Other disorders of lung; M48.54XA Collapsed vertebra, not elsewhere classified, thoracic region, initial encounter for fracture
CPT/HCPCS: 71260

== ENCOUNTER → 2018-06-16 | Day surgery (SDC) | payer MEDICARE ==
[2018-06-16 17:56] VITALS: BP 138/68; TEMP 97.5
== END ==
LOC: ONC/OP 12:41
PROVIDERS: ATTEND Internal Medicine Hematology & Oncology
DX: Z51.12 Encounter for antineoplastic immunotherapy (principal); C34.81 Malignant neoplasm of overlapping sites of right bronchus and lung; N18.3 Chronic kidney disease, stage 3 (moderate); D50.8 Other iron deficiency anemias; F17.291 Nicotine dependence, other tobacco product, in remission
CPT/HCPCS: 96413; C9492; J7050

== ENCOUNTER 2018-06-30 14:22 | Day surgery (SDC) | payer MEDICARE ==
[2018-06-30] MEDS ORDERED: SODIUM CHLORIDE 0.9% IV SCH (14:30)
[2018-06-30] MEDS ORDERED: DURVALUMAB IV SCH (14:30)
[2018-06-30] MEDS ORDERED: Sodium Chloride 0.9% 30 ML ONE (15:13)
[2018-06-30 15:38] VITALS: BP 174/86; TEMP 97.6
== END 2018-06-30 17:20 | disposition home or self-care (01) ==
LOC: ONC/OP 14:22
PROVIDERS: ATTEND Internal Medicine Hematology & Oncology
DX: Z51.11 Encounter for antineoplastic chemotherapy (principal); C34.81 Malignant neoplasm of overlapping sites of right bronchus and lung; N18.3 Chronic kidney disease, stage 3 (moderate); D50.8 Other iron deficiency anemias; Z79.2 Long term (current) use of antibiotics; Z79.899 Other long term (current) drug therapy; Z88.0 Allergy status to penicillin
CPT/HCPCS: 96413; C9492; J7050

== ENCOUNTER 2018-07-11 07:53 | Day surgery (SDC) | payer MEDICARE ==
[2018-07-11 08:28] VITALS: BP 150/67; TEMP 98.3
[2018-07-11] MEDS ORDERED: SODIUM CHLORIDE 0.9% IV SCH (09:00)
[2018-07-11] MEDS ORDERED: DURVALUMAB IV SCH (09:00)
== END 2018-07-11 11:46 | disposition home or self-care (01) ==
LOC: ONC/OP 07:53
PROVIDERS: ATTEND Internal Medicine Hematology & Oncology
DX: Z51.12 Encounter for antineoplastic immunotherapy (principal); C34.81 Malignant neoplasm of overlapping sites of right bronchus and lung; I12.9 Hypertensive chronic kidney disease with stage 1 through stage 4 chronic kidney disease, or unspecified chronic kidney disease; N18.3 Chronic kidney disease, stage 3 (moderate); D50.8 Other iron deficiency anemias; Z90.49 Acquired absence of other specified parts of digestive tract; Z90.710 Acquired absence of both cervix and uterus; Z88.0 Allergy status to penicillin; Z79.2 Long term (current) use of antibiotics; Z79.899 Other long term (current) drug therapy
CPT/HCPCS: 96413; C9492; J7050

== ENCOUNTER 2018-07-27 14:33 | Outpatient (CLI) | payer MEDICARE ==
[~2018-07-27 14:33] MED LIST changes: -DURVALUMAB IV SCH; +Gadobenate Dimeglumine 529 MG/1 ML (20ML VIAL) ONE; -SODIUM CHLORIDE 0.9% IV SCH; -Sodium Chloride 0.9% 20 ML ONE
--- NOTE | 2018-07-27 16:49 | MRI ---
MRI BRAIN WITH AND WITHOUT IV CONTRAST: Date: 07/27/18 HISTORY: Lung cancer. Malignant neoplasm of brain. Slurred speech. Difficulty speaking. FINDINGS: There is a 3.7 x 2.8 x 3.2 cm enhancing mass in the left cerebral hemisphere superior to the left martha vian fissure and extending to the left external capsule with surrounding edema/mass effect on adjacen t structures. The ventricular size is appropriate and the basilar cisterns are patent. There are changes of cortica l atrophy and chronic small vessel ischemic disease. No restricted diffusion is seen. There is fluid in the left mastoid air cells. IMPRESSION: Findings are consistent with malignancy (more likely secondary versus less likely primary). POS: [facility]
== END 2018-07-27 14:34 | disposition home or self-care (01) ==
LOC: BICMRI 14:33
PROVIDERS: ATTEND Internal Medicine Hematology & Oncology
DX: C34.81 Malignant neoplasm of overlapping sites of right bronchus and lung (principal)
CPT/HCPCS: 70553; A9577

== ENCOUNTER 2018-07-29 08:03 | Outpatient (CLI) | payer MEDICARE ==
--- NOTE | 2018-07-29 12:10 | PET ---
RADIONUCLIDE PET SCAN WITH CT ATTENUATION CORRECTION AND SPECT IMAGING: HISTORY: C34.81. Lung cancer with metastasis. Restaging. COMPARISON: 03/03/18. FINDINGS: Physiologic uptake within the enteric system and along each urinary tract. In the area of hypermetabo lic mass in the right upper lobe on the prior study, maximum SUV is now 1.4 (previously 7.8). Mildly increased uptake and an area of scarring at the right posterior lung base shows a maximum SUV of 2.5. A new focus of hypermetabolic activity at the left suprahilar level may represent an enlarged lymph n ode. There was no corresponding abnormality on the previous exam. Maximum SUV is 5.8. A new hypermetabolic lymph node just anterior to the upper abdominal aorta, likely within a gastric l ymph node, shows maximum SUV of 10.0. An upper aortocaval abdominal hypermetabolic lymph node shows a maximum SUV of 8.9. Within the anterior lower abdomen, there is marked circumferential soft tissue thickening of a loop o f bowel favored to represent the transverse colon. Markedly increased activity is present with a maxi mum SUV of 15.7. Activity in this location on the previous study showed maximum SUV of 17.4, although it was not detailed in the report. IMPRESSION: While there has been decreased activity associated with the right upper lobe mass, new abnormalities are present, including a left suprahilar hypermetabolic lymph node. 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 Please con medical technologist hematology colonoscopic evaluation. Findings called to Dr. Clifford at 1120 hours. CODE CR. POS: [facility]
== END 2018-07-29 08:04 | disposition home or self-care (01) ==
LOC: PET 08:03
PROVIDERS: ATTEND Internal Medicine Hematology & Oncology
DX: C34.90 Malignant neoplasm of unspecified part of unspecified bronchus or lung (principal); R91.8 Other nonspecific abnormal finding of lung field; R94.8 Abnormal results of function studies of other organs and systems
CPT/HCPCS: 78815; A9552

== ENCOUNTER 2018-08-05 15:50 | Inpatient (IN) | payer MEDICARE ==
[2018-08-05 17:46] VITALS: BMI 16.7
--- NOTE | 2018-08-05 18:08 | PDOC.FPRHP ---
- History of Present Illness Chief Complaint: SOB History of Present Illness: 83 yo F with PMH squamous cell cancer lung w/ brain met, HTN is a direct admit from oncology clinic for SOB. History obtained from patient and daughter. This week pt has had decreased PO intake, weight loss (previously 119 lbs), has not felt good. Yesterday developed SOB and mild cough, productive clear/yellow at times. This am at home pulse ox was in 70s, increased home O2. Had radiation treatment, continued to have increasing SOB and was admitted here. Denies fever/ chills, nasal congestion, N/V/D, CP. Squamous cell lung CA: Darrin is oncologist. Diagnosed in 11/2017, received radiation and chemo with follow up PET scan negative. Started immunosuppression med 03/2018. This med caused hypothyroid and they have been checking TSH and adjusting synthroid dose every 2 weeks. 10 days ago dose decreased to 100mcg. Last week after slurred speech, new 4cm brain met found on MRI. Started on radiation. 06/29: Dr. Miranda did sputum culture so "we would know what to treat" - Allergies/Adverse Reactions Allergies Allergy/AdvReac Type Severity Reaction Status Date / Time Penicillins Allergy Verified 10/11/17 16:20 - Home Medications Medication Instructions Recorded Confirmed Type Amlodipine [Norvasc] 5 mg PO DAILY 10/11/17 08/05/18 History Dexamethasone 4 mg PO TID 08/05/18 08/05/18 History Famotidine [Pepcid] 40 mg PO DAILY 08/05/18 08/05/18 History Levothyroxine Sodium [Synthroid] 100 mcg PO DAILY 08/05/18 08/05/18 History Loratadine [Claritin] 10 mg PO DAILY 08/05/18 08/05/18 History - History PMHx: hypothyroidism 2/2 medication , HTN, lung squamous cell ca w/ brain mets, CKD2 PSHx: hysterectomy FHx: father- colon cancer and leukemia, mother- HTN Social: smoked 1.5 pack a week for all of her life until diagnosed with cancer 11/2017 - Review of Systems General: reports: weight/appetite/sleep changes. denies: fever/chills Eyes: denies: eye pain, vision changes ENT: denies: nasal congestion, rhinorrhea Respiratory: reports: cough, shortness of breath. denies: congestion Cardiovascular: denies: chest pain, palpitation Gastrointestinal: denies: nausea, vomiting, diarrhea, constipation, abdominal pain Genitourinary: denies: dysuria, polyuria Skin: denies: rashes, lesions Musculoskeletal: denies: pain, tenderness Neurological: reports: other (no dizziness, no headache). denies: numbness, syncope - Vital signs BP: 124/65 HR: 89 RR: 18 Tmax: 97.7 Pox: 93% on 2L Wt: 44 kg - Physical Exam Constitutional: awake, alert and oriented HEENT: normocephalic and atraumatic Heart: RRR, no murmurs/rubs/gallops Lungs: good air movement, no wheezing, other (diffuse rhonchi, course breath sounds) Abdomen: soft Neurological: CN II-XII intact Skin: no rash/lesions, capillary refill <2 seconds Heme/Lymphatic: no unusual bruising or bleeding FMR H&P: Results - Labs Result Diagrams: 08/05/18 18:56 08/05/18 18:56 FMR H&P: A/P - Problem List (1) Squamous cell carcinoma of lung Current Visit: Yes Status: Acute Code(s): C34.90 - MALIGNANT NEOPLASM OF UNSP PART OF UNSP BRONCHUS OR LUNG (2) Brain metastasis Current Visit: Yes Status: Acute Code(s): C79.31 - SECONDARY MALIGNANT NEOPLASM OF BRAIN (3) History of tobacco abuse Current Visit: Yes Status: Acute Code(s): Z87.891 - PERSONAL HISTORY OF NICOTINE DEPENDENCE (4) CKD (chronic kidney disease) stage 2, GFR 60-89 ml/min Current Visit: Yes Status: Acute Code(s): N18.2 - CHRONIC KIDNEY DISEASE, STAGE 2 (MILD) (5) Acute and chronic respiratory failure ([id number]) Current Visit: No Status: Acute Code(s): J96.20 - ACUTE AND CHR RESP FAILURE , UNSP W HYPOXIA OR HYPERCAPNIA Comment: clinically improved (6) Hypertension Current Visit: No Status: Chronic Code(s): I10 - ESSENTIAL (PRIMARY) HYPERTENSION Comment: Monitor vital signs, titrate antihypertensives as needed - Plan Acute hypoxic respiratory failure 2/2 COPD exacerbation vs PE vs URI - daughter refused ABG - increased O2 requirement, now on 2L. Mild productive cough. - CXR neg for acute change - ordered duonebs. already on steroids per oncology - pending procalcitonin, urine strep, sputum culture, will likely order CTA Squamous cell carcinoma w/ recently diagnosed brain mets - last radiation treatment 08/05, Dr. Clifford is oncologist - continue home dexamethasone 4mg TID Mild hyponatremia - Na+ 133 - already on IVF and will recheck on am BMP CKD2 - Cr at baseline HTN - continue home amlodipine Hypothyroid 2/2 medication - continue home synthroid. Dose was decreased from 150->100 mcg 10 days ago. - pending TSH Previous smoking hx - no diagnosis of COPD and no home inhalers Allergies - continue claritin Diet: Regular Ppx: Lovenox Dispo: admit to oncology for observation FMR H&P: Upper Level - Pertinent history 83 yr old female started on dexamethasone last week by dr clifford and dr Fernandez. Normally has a good appetite but this week loss of appetite. Started to not feel good yesterday. She started coughing more yesterday. Cough is "wet." Sometime coughs up clear stuff and sometimes yellow. Dr Miranda did sputum cx on Jun 29- apparently so we would know what to treat if she gets this again. SOB started yesterday. O2 sat in low 70's this morning. Started required oxygen which she hasn't needed since February. Usually sleeps with O2 at night. - Pertinent findings Gen: no acute distress, very pleasant heart: RRR, no M/R/G lungs: diffuse rattles vs rhonchi in all lobes, no acute respiratory distress abd: normal active BS, nontender to palpation Ext: No edema CXR: no consolidations, chronic lung changes bilaterally - Plan Date/Time: 08/05/181807 I, [Daphne Munoz], have evaluated this patient and agree with findings/plan as outlined by environmental intern resident. Pertinent changes/additions are listed here. 83 yr old female with PMH of lung cancer presents for SOB and low O2 sats acute hypoxic respiratory failure -unclear etiology but may be 2/2 PE, bronchiectasis, COPD exacerbation -ABG ordered but declined by patient's daughter. -plan to obtain Chest CTA although patient currently stable and would like to give fluids prior to procedure given her CKD Stage 3. -cont O2 prn -pulm consult in AM -procalcitonin low providing further evidence of unlikely PNA -check sputum cx although likely psuedomonas colonizer given recent sputum cx lung cancer with brain mets -patient with very low lung reserve which may also be contributing to hypoxia hypothyroidism -will check TSH per pt daughter request however will not plan to make acute changes given the synthroid was just changed 10 days ago. please see environmental intern note for other medical problems. Code status: DNR- discussed with patient and family at bedside Addendum - Attending - Attending Attestation Date/Time: 08/05/182220 I personally evaluated the patient and discussed the management with Dr. Merrill I agree with the History, Examination, Assessment and Plan documented above with any addition or exceptions noted below.Pleasant 83 yo female with SCC of lung s/p XRT and chemotherapy patient with recent brain met has received 10/04 XRT treatment next due Wednesday. Patient followed by Dr Miranda known positive sputum culture positive for Pseudomonas. Recent SOB concern exacerbated COPD, Post obstructive Pneumonia consider PE rec check abgs, hydration there CTA sooner if become unstable and AM Pulmonary consultation. Daughter states character of sputum has changed will collect sputum specimen for gm stain C&S withhold ABX for now start nebulizer treatment supplemental Oxygen.Flu swab urine pna ag.
[2018-08-05 19:07] LABS: #Basophils 0.1 thou/uL (0.0-0.2); #Lymphocytes 0.4 thou/uL (1.20-3.40); %Eosinophils 0.5 % (0.0-10.0); %Lymphocytes 4.7 % (21.0-51.0); %Monocytes 13.7 % (0.0-10.0); %Neutrophils 80.1 % (42.0-75.0); Hemoglobin 13.2 g/dL (12.0-16.0); Mean Corpuscular HGB CONC 31.3 g/dL (32.0-36.0); Mean Corpuscular Hemoglobin 27.2 pg (27.0-31.0); Mean Corpuscular Volume 86.9 fL (78.0-98.0); Mean Platelet Volume 6.5 fL (7.4-10.4); Platelet Count 342 thou/uL (130-400); Red Blood Cell (RBC) Count 4.84 mill/uL (4.20-5.40); White Blood Cell (WBC) Count 7.4 thou/uL (4.8-10.8)
[2018-08-05 19:28] LABS: ALT (SGPT) 14 U/L (8-55); AST (SGOT) 15 U/L (5-34); Albumin 4.1 g/dL (3.4-4.8); Alkaline Phosphatase 108 U/L (40-150); Anion Gap 16 mmol/L (10-20); BUN (Urea Nitrogen) 36 mg/dL (9.8-20.1); Calc. Creatinine Clearance 25 mL/min (70-130); Calcium 9.7 mg/dL (7.8-10.44); Carbon Dioxide 24 mmol/L (23-31); Chloride 97 mmol/L (98-107); Estimated GFR-MDRD 44; Globulin 3.2 g/dL (2.4-3.5); Glucose 114 mg/dL (83-110); Protein, Total 7.3 g/dL (6.0-8.3); Sodium 133 mmol/L (136-145)
[2018-08-05] MEDS ORDERED: Acetaminophen 325 MG TAB PO PRN (20:05)
[2018-08-05] MEDS ORDERED: Ondansetron ODT 4 MG TAB PO PRN (20:05)
[2018-08-05] MEDS ORDERED: Sodium Chloride 0.9% 500 ML IV SCH (20:15)
[2018-08-05] MEDS: Dexamethasone 4 MG TAB PO SCH (21:11)
[2018-08-05] MEDS: Sodium Chloride 0.9% 1,000 ML IV SCH (22:06)
--- NOTE | 2018-08-05 22:09 | RAD ---
PORTABLE CHEST ONE VIEW: 08/05/18 at 8:52 p.m. HISTORY: Shortness of breath. Lung cancer. FINDINGS/IMPRESSION: Comparison made with exam of 03/24/18. The heart is enlarged. The aorta is tortuous. There is chronic changes in the lung graham bilaterally . No lobar consolidation, pneumothoraces, minnie pulmonary edema, or large effusions are seen. POS: [facility]
[2018-08-05] MEDS ORDERED: guaiFENesin/DM ER PO SCH (23:15)
[2018-08-06 02:43] LABS: Strep pneumo Urine Ag NEGATIVE (NEGATIVE)
[2018-08-06 02:59] LABS: Anion Gap 12 mmol/L (10-20); BUN (Urea Nitrogen) 28 mg/dL (9.8-20.1); Calc. Creatinine Clearance 35 mL/min (70-130); Calcium 8.8 mg/dL (7.8-10.44); Carbon Dioxide 24 mmol/L (23-31); Chloride 103 mmol/L (98-107); Estimated GFR-MDRD 64; Glucose 105 mg/dL (83-110); Potassium 3.9 mmol/L (3.5-5.1); Sodium 135 mmol/L (136-145)
[2018-08-06] MEDS: Levothyroxine Sodium 100 MCG TAB PO SCH (05:48)
--- NOTE | 2018-08-06 06:07 | PDOC.FM ---
- Subjective Subjective: NAEO. No complaints with breathing, sill on 2L [place] Coughing. NO fevers. - Objective MAR Reviewed: Yes Vital Signs & Weight: Vital Signs (12 hours) Temp Pulse Resp BP BP BP Pulse Ox 08/06/18 04:00 98.4 F 91 16 122/57 L 95 08/06/18 02:31 78 18 98 08/05/18 23:50 97.4 F L 82 18 145/67 H 96 08/05/18 21:38 90 20 90 L 08/05/18 20:05 97.4 F L 80 16 150/63 H 94 L 08/05/18 20:00 94 L Weight Weight 44.225 kg I&O: 08/04/18 08/05/18 08/06/18 06:59 06:59 06:59 Intake Total 1383 Balance 1383 Result Diagrams: 08/06/18 09:05 08/06/18 02:05 Phys Exam - Physical Examination Constitutional: NAD thing body habitus HEENT: moist MMs crackles diffusely Cardiovascular: RRR, no significant murmur Gastrointestinal: soft, non-tender Neurological: non-focal, moves all 4 limbs Psychiatric: normal affect Dx/Plan (1) Brain metastasis Code(s): C79.31 - SECONDARY MALIGNANT NEOPLASM OF BRAIN Status: Acute (2) CKD (chronic kidney disease) stage 2, GFR 60-89 ml/min Code(s): N18.2 - CHRONIC KIDNEY DISEASE, STAGE 2 (MILD) Status: Acute (3) History of tobacco abuse Code(s): Z87.891 - PERSONAL HISTORY OF NICOTINE DEPENDENCE Status: Acute (4) Squamous cell carcinoma of lung Code(s): C34.90 - MALIGNANT NEOPLASM OF UNSP PART OF UNSP BRONCHUS OR LUNG Status: Acute (5) Acute and chronic respiratory failure ([id number]) Code(s): J96.20 - ACUTE AND CHR RESP FAILURE, UNSP W HYPOXIA OR HYPERCAPNIA Status: Acute (6) Hypertension Code(s): I10 - ESSENTIAL (PRIMARY) HYPERTENSION Status: Chronic - Plan Plan: Acute hypoxic respiratory failure on 2L -COPD exacerbation vs. PE vs. infectious lung path - daughter refused ABG - CXR neg for acute change - respiratory status, improving/unchanged-continue duonebs, steroids - procal negative, however could be localized infection - urine strep negative - pending sputum culture, consider CTA to r/o PE (elevated ddimer) Squamous cell carcinoma w/ recently diagnosed brain mets - last radiation treatment 08/05, Dr. Clifford is oncologist - continue home dexamethasone 4mg TID CKD2 - Cr at baseline HTN - continue home amlodipine Hypothyroid 2/ medication - continue home synthroid. Dose was decreased from 150->100 mcg 10 days ago. - TSH low, not necessarily accurate since recent dose change. Will need to recheck in about 5-6 weeks Previous smoking hx - no diagnosis of COPD and no home inhalers Allergies - continue claritin Diet: Regular Ppx: Lovenox Dispo: Consider Pulm. consult, recs appreciated. Addendum - Attending - Attending Attestation Date/Time: 08/06/18 1785 I personally evaluated the patient and discussed the management with Dr. Duran I agree with the History, Examination, Assessment and Plan documented above with any addition or exceptions noted below. 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 Patient responding to nebulizer treatment supplemental oxygen. Consider pulmonary toilet have percussive vest at home . Rec expectant management on current synthroid dose.
[2018-08-06] MEDS: Enoxaparin Sodium 30 MG/0.3 ML SYRINGE SC SCH ×2 (08:36→09:15)
[2018-08-06] MEDS: Famotidine 20 MG TAB PO SCH (09:15)
[2018-08-06] MEDS: Amlodipine 5 MG TAB PO SCH (09:15)
[2018-08-06] MEDS: Dexamethasone 4 MG TAB PO SCH ×2 (09:15→17:13)
[2018-08-06 09:19] LABS: #Lymphocytes 0.3 thou/uL (1.20-3.40); #Monocytes 0.6 thou/uL (0.11-0.59); #Neutrophils 5.3 thou/uL (1.40-6.50); %Eosinophils 0.4 % (0.0-10.0); %Lymphocytes 4.2 % (21.0-51.0); %Monocytes 8.9 % (0.0-10.0); %Neutrophils 86.5 % (42.0-75.0); Hemoglobin 11.7 g/dL (12.0-16.0); Mean Corpuscular HGB CONC 31.4 g/dL (32.0-36.0); Mean Corpuscular Hemoglobin 27.7 pg (27.0-31.0); Mean Corpuscular Volume 88.5 fL (78.0-98.0); Mean Platelet Volume 6.5 fL (7.4-10.4); Platelet Count 297 thou/uL (130-400); RBC Distribution Width 17.6 % (11.5-14.5); Red Blood Cell (RBC) Count 4.21 mill/uL (4.20-5.40); White Blood Cell (WBC) Count 6.1 thou/uL (4.8-10.8)
[2018-08-06] MEDS ORDERED: ISOVUE-370 76%-LOCM 1 ML ONE (09:53)
--- NOTE | 2018-08-06 13:29 | CT ---
CT ANGIOGRAM THORAX WITH IV CONTRAST AND 3D RECONSTRUCTIONS: Date: 08/06/18 HISTORY: Chest pain and cough. History of lung cancer. COMPARISON: 05/30/[address] on 07/29/18. FINDINGS: There are no filling defects seen of the pulmonary arteries to suggest pulmonary embolus. However, th e pulmonary artery segments are mildly prominent, which suggest element of pulmonary artery hypertens ion. There is extrinsic mass effect on the proximal most right lower lobe pulmonary artery in the rig ht hilum which is related to extrinsic compression from soft tissue density, which may be related to lymphadenopathy. The thoracic aorta is normal in caliber without evidence of an aortic dissection. Prominent vascular calcifications are seen within the thoracic aorta, as well as involving the coronary arteries. There are parenchymal lung changes seen within the right lower lobe and the right perihilar location with associated cylindrical traction bronchiectasis. The parenchymal changes in the right perihilar l ocation may be related to soft tissue density and parenchymal changes in the right perihilar region o r could be related to patient's known neoplastic process and/or pleural thickening and scarring. Ther e is consolidation present also in a right perihilar location which could be related to infectious pr ocess. There are a few filling defects seen within right lower lobe bronchi which may be related to m ucus plugging or debris. There is volume loss in the right lower lobe. There are emphysematous changes seen throughout the lungs bilaterally with scattered linear densities present, also present on prior study, may be related to areas of scarring. No discrete pulmonary nod ule is seen. There is a small right pleural effusion present. There is a large left suprahilar lymph node seen measuring 1.5 cm, which was seen on the recent PET C T examination. This did demonstrate hypermetabolic activity. Volume loss is present in the lingula and left lower lobe. Visualized upper abdomen demonstrates stable hypodense structure in the superior pole of the right ki dney, likely related to a cyst. Prominent vascular calcifications and plaque are seen in the visualized proximal abdominal aorta. Remainder of the upper abdomen demonstrates similar appearance to prior studies. There is right convex curvature of the thoracic spine. There are multiple compression fractures of th oracic vertebral bodies, and the number of compression deformities has increased compared to prior st udy. There are compression fractures involving the T8, T9, T10, and T12 vertebral bodies. There is al so a fracture involving the L1 vertebral body involving both the superior and inferior end plate. Fra ctures were seen involving the T8 and to a lesser extent superior end plate of T9 vertebral body, as well as the T12 and L1 vertebral bodies on prior study in 2018. IMPRESSION: 1. No CT evidence of a pulmonary embolus. There is extrinsic mass effect on the distal right main pu lmonary artery, as well as proximal right lower lobe pulmonary artery, which may be related to lympha denopathy or mass in this region. This was not present on the study in 2018 and is not well evaluated on the noncontrast PET CT exam. 2. Enlarged left hilar/suprahilar lymph node measuring 1.5 cm short axis dimension. This did demonst rate hypermetabolic activity on recent PET scan. 3. Parenchymal changes within the right perihilar location at the right lung base, likely related to scarring with associated traction bronchiectasis. However, there are filling defects seen within rig ht lower lobe bronchi, which could be related to mucus plugging or debris. There is a slightly greate r amount of parenchymal changes in the right hilar region compared to study on 05/30/18. Greater amou nt of soft tissue density in the right hilar region again may be related to lymphadenopathy or neopla stic process. 4. COPD. 5. Multiple thoracic vertebral body compression fractures, as well as overall stable compression fra ctures of the L1 vertebral body. POS: [facility]
[2018-08-06] MEDS ORDERED: Bacteriostatic Water 30 ML VIAL FS PRN (19:56)
[2018-08-06] MEDS ORDERED: Dexamethasone 4 MG TAB PO SCH (20:45)
--- NOTE | 2018-08-06 21:22 | PDOC.EVN ---
Event Note - Event Note Event Note: Discussed care plan with patient and family reviewed results from CTA today( with no PE no infiltrate, bronchietasis noted) . Discussed with patient and family Dr Christianson's recommendations of q 4 neb, mucolytics and increased steroid, and no indication for antibiotics. Patient daughter declines increased or change in steroid as XRT oncologist recently increased decadron family endorses reason for increasing steroid for improving pulmonary congestion however decline this rec. Patient improved on current RX rec continued supplemental oxygen advance activity and continued observation should be nearing [facility] hospital benefit unless clinical changes. Appreciate Pulmonary recommendations
[2018-08-06] MEDS: Sodium Chloride 0.9% 1,000 ML IV SCH ×2 (21:48→22:54)
[2018-08-06] MEDS: guaiFENesin ER 600 MG TAB PO SCH (21:48)
[2018-08-06] MEDS ORDERED: methylPREDNISolone Sod Succ 40 MG VIAL IVP SCH (22:00)
[2018-08-07 04:42] LABS: Anion Gap 12 mmol/L (10-20); BUN (Urea Nitrogen) 17 mg/dL (9.8-20.1); Calc. Creatinine Clearance 43 mL/min (70-130); Calcium 8.5 mg/dL (7.8-10.44); Carbon Dioxide 22 mmol/L (23-31); Chloride 105 mmol/L (98-107); Estimated GFR-MDRD 81; Glucose 124 mg/dL (83-110); Sodium 135 mmol/L (136-145)
--- NOTE | 2018-08-07 06:05 | PDOC.FM ---
- Subjective Subjective: No acute events overnight, patient's breathing improved with breathing treatments. - Objective MAR Reviewed: Yes Vital Signs & Weight: Vital Signs (12 hours) Temp Pulse Resp BP Pulse Ox 08/07/18 03:50 97.4 F L 65 12 137/62 99 08/07/18 01:38 64 16 95 08/06/18 23:35 97.6 F 76 16 132/60 96 08/06/18 21:47 79 18 98 08/06/18 20:00 94 L 08/06/18 19:48 97.9 F 80 12 123/63 94 L 08/06/18 18:16 75 16 97 Weight Admit Weight 44.225 kg Weight 44.225 kg I&O: 08/05/18 08/06/18 08/07/18 06:59 06:59 06:59 Intake Total 1583 1275 Output Total 350 Balance 1233 1275 Result Diagrams: 08/06/18 09:05 08/07/18 04:16 Phys Exam - Physical Examination Constitutional: NAD HEENT: PERRLA, moist MMs diffuse crackles Cardiovascular: RRR, no significant murmur Neurological: non-focal, moves all 4 limbs Psychiatric: normal affect, A&O x 3 Dx/Plan (1) Brain metastasis Code(s): C79.31 - SECONDARY MALIGNANT NEOPLASM OF BRAIN Status: Acute (2) CKD (chronic kidney disease) stage 2, GFR 60-89 ml/min Code(s): N18.2 - CHRONIC KIDNEY DISEASE, STAGE 2 (MILD) Status: Acute (3) History of tobacco abuse Code(s): Z87.891 - PERSONAL HISTORY OF NICOTINE DEPENDENCE Status: Acute (4) Squamous cell carcinoma of lung Code(s): C34.90 - MALIGNANT NEOPLASM OF UNSP PART OF UNSP BRONCHUS OR LUNG Status: Acute (5) Acute and chronic respiratory failure ([id number]) Code(s): J96.20 - ACUTE AND CHR RESP FAILURE, UNSP W HYPOXIA OR HYPERCAPNIA Status: Acute (6) Hypertension Code(s): I10 - ESSENTIAL (PRIMARY) HYPERTENSION Status: Chronic - Plan Plan: Acute Hypoxic Resp. Failure on 2L - Likely COPD exacerbation vs. bronchiectasis - daughter refused ABG yesterday - CXR neg for acute change - CTA showed bronchiectasis, COPD - respiratory status improved with duonebs and current steroid regimen and mucolytics - procal negative, pseudomonas colonization (see prior event note) - urine strep negative Squamous cell carcinoma w/ recently diagnosed brain mets - last radiation treatment 08/05, Dr. Clifford is oncologist - continue home dexamethasone 4mg TID CKD2 - Cr at baseline HTN - continue home amlodipine Hypothyroid 2/2 medication - continue home synthroid. Dose was decreased from 150->100 mcg 10 days ago. - TSH low, not necessarily accurate since recent dose change. Will need to recheck in about 5-6 weeks Previous smoking hx - no diagnosis of COPD and no home inhalers Allergies - continue claritin Diet: Regular Fluids: NS @75cc Ppx: Lovenox Dispo: If clinically improved today can consider d/c home with supplmenetal O2. . Addendum - Attending - Attending Attestation Date/Time: 08/08/18 0718 I personally evaluated the patient and discussed the management with Dr. Duran I agree with the History, Examination, Assessment and Plan documented above with any addition or exceptions noted below.
[2018-08-07] MEDS: Levothyroxine Sodium 100 MCG TAB PO SCH (06:23)
[2018-08-07 08:12] VITALS: BP 143/67; TEMP 98
[2018-08-07] MEDS: guaiFENesin ER 600 MG TAB PO SCH (08:24)
[2018-08-07] MEDS: Famotidine 20 MG TAB PO SCH (08:25)
[2018-08-07] MEDS: Amlodipine 5 MG TAB PO SCH (08:25)
[2018-08-07] MEDS: Dexamethasone 4 MG TAB PO SCH ×2 (08:25→12:16)
[2018-08-07] MEDS: Enoxaparin Sodium 30 MG/0.3 ML SYRINGE SC SCH (08:36)
[2018-08-07] MEDS: Sodium Chloride 0.9% 1,000 ML IV SCH (12:23)
--- NOTE | 2018-08-08 15:32 | DIS ---
DATE OF ADMISSION: 08/05/2018 DATE OF DISCHARGE: 08/07/2018 PRIMARY CARE PHYSICIAN: Arnav Pratt MD ADMITTING ATTENDING: Valeria Silva MD DISCHARGE ATTENDING: Brooks Varela MD CONSULTS: Pulmonology, Aftab Christianson MD PROCEDURES: None. PRIMARY DIAGNOSES: 1. Acute hypoxic respiratory failure requiring increase in baseline O2, likely secondary to COPD exacerbation versus bronchiectasis. 2. Squamous cell carcinoma of the lung, status post radiation treatment with recent diagonsis of brain metastasis. 3. Chronic respiratory failure requiring 2 L at night. SECONDARY DIAGNOSES: 1. Hypertension. 2. Chronic kidney disease. 3. History of tobacco abuse 4. Undiagnosed COPD IMAGING: CT chest (08/05/2018) enlarged left suprahilar lymph node measuring 1.5 cm. Parenchymal changes within the right perihilar location at the right lung base related to scarring with associated traction bronchiectasis. Increased soft tissue density of right hilar region related to lymphadenopathy and neoplastic process. COPD. Multiple thoracic vertebral body compression fractures and stable compression fracture of the L1 vertebral body. HISTORY OF PRESENT ILLNESS/HOSPITAL COURSE: Ms. Ferguson is an 83-year-old female with squamous cell carcinoma, who presented as a direct admit from the Heme-Onc clinic for increased dyspnea on exertion. She is currently seeing a resource development director for treatment and management of her squamous cell carcinoma of the lung. She was recently diagnosed with brain lets last week and was started on daily dexamethasone. In regards to her SOB, the patient typically requires 2 L oxygen at home but on admission was requiring 4 L. She did not require BiPAP or intubation. CXR was negative for pneumonia and lab work negative for signs of systemic infection. Patient's daughter was concerned and requested patient be started on antibiotics due to Pseudomonas infection tested with Dr. Manriquez. Of note, the patient sees Dr. Manriquez, radio adjuster, who had recently done a bronchoscopy showing Pseudomonas colonization. However, due to labwork all negative for signs systemic infection we did not see a need to start systemic antibiotic therapy. Further workup included CT chest confirming bronchiectasis, increased neoplastic process changes and COPD. Community Product Specialist, Dr. Aftab Christianson was consulted, who recommended increasing dose of current steroids from 20 to 40mg daily. However, the patient's daughter (AYESHA) declined saying she would like to keep at current dose since she was just started on it by her oncologist last week. Thus, we started on DuoNeb and mucolytics. She experienced a rapid return to her baseline respiratory status. Ultimately, it was thought that patient's SOB was attributable largely to her undiagnosed COPD and possible bronchiectasis. Upon discharge, measures were made to ensure family had everything they needed to aid in respiratory treatment including nebulizer machine, duoneb medication, percussive vest, mucolytics and shower chair. Family expressed feeling ready to go home since they had all the equipment they needed and nothing could be done in the hospital that couldn't be done at home. All questions were answered thoroughly. DISPOSITION: Stable. DISCHARGE INSTRUCTIONS: 1. Location: Home. 2. Activity: Ad jess as tolerated. 3. Diet: Heart healthy with might shake nutritional supplement 4. Followup: Please follow up with radio adjuster, Dr. Manriquez in a week. Please follow up with heme-oncologist this week. Please follow up with PCP, Dr. Pratt in 7 days. Job ID: [id number] [facility]
--- NOTE | 2018-08-08 18:20 | PQF ---
QASIM MARIE BERNADETTE *r [id number] CLINICAL DOCUMENTATION IMPROVEMENT CLARIFICATION FORM: ICD-10 Updated PLEASE DO AN ADDENDUM TO THE PROGRESS NOTE WITH ANY DOCUMENTATION UPDATES OR ADDITIONS AND CARRY THROUGH TO DC SUMMARY. THANK YOU. Date: 08-08-18 ATTN: DR. DEANA MATHIAS / DR. YEPEZ Please exercise your independent, professional judgment in responding to the clarification form. Clinical indicators are provided on the bottom of this form for your review Please check appropriate box(s): [ x ] Protein Calorie Malnutrition: [ ] Mild [ x] Moderate [ ] Severe [ ] Other Malnutrition (please specify) __ [ ] Underweight without malnutrition [ x ] Cachexia [ x ] Other diagnosis Metastatic lung cancer stage 4 [ ] Unable to determine In addition, please specify: Present on Admission (POA): [ x] Yes [ ] No [ x] Unable to determine CLINICAL INDICATORS - SIGNS / SYMPTOMS / LABS BMI 16.7 2-15 (NANDINI) H&P: DECREASED PO INTAKE, WEIGHT LOSS 2-16 DIETARY CONSULT: * PT REPORTS GOOD APPETITE - DAUGHTER REPORTS ONLY EATING 50% OF USUAL INTAKE X 1 WEEK. * MUSCLE WASTING OBSERVED TO TEMPLES AND BLUE * MALNUTRITION - ACUTE LOSS OF APPETITE * daughter report of <50% energy intake x1 week, 7-12% weight loss in 1 week, muscle wasting observed RISK FACTORS -15 (NANDINI) H&P: SQUAMOUS CELL LUNG CANCER W/ MET TO BRAIN TREATMENT: 2-16 DIETARY CONSULT: 1. Continue liberalized Regular diet, Low Sodium diet would be appropriate assisted 2. RD to order Mighty Shakes TID, patient refuses Ensure Moderate Malnutrition (in acute illness) Energy Intake: <75% of estimated energy requirement for > 7 days Weight Loss: 1-2%/1 week; 5%/ 1 month; 7.5%/3 months Other: mild body fat loss; mild muscle mass loss; mild fluid accumulation; Severe Malnutrition (in acute illness) Energy Intake: < 50% of estimated energy requirement for > 5 days Weight Loss: >1-2%/1 week; >5%/1 month; >7.5%/3 months Other: moderate body fat loss; moderate muscle mass loss; moderate- severe fluid accumulation; measurably reduced psychometric examiner strength Moderate Malnutrition (in chronic illness) Energy Intake: <75% of estimated energy requirement for >1 month Weight Loss: 5%/1 month; 7.5%/3 months; 10%/6 months; 20%/1 year Other: mild body fat loss; mild muscle mass loss; mild fluid accumulation Severe Malnutrition (in chronic illness) Energy Intake: <75% of estimated energy requirement for >1 month Weight Loss: >5%/1 month; >7.5%/3 months; >10%/6 months; >20%/1 year Other: severe body fat loss; severe muscle mass loss; severe fluid accumulation ; measurably reduced psychometric examiner strength THANK YOU, KIARA (This form is maintained as a part of the permanent medical record) 2015 [employer]. All Rights Reserved Kiara Sinha RN, BS [email or web address] [email or web address] [facility]
== END 2018-08-07 14:25 | disposition home or self-care (01) | DRG 190 ==
LOC: UNDOADMIN 15:51 → SURG A 15:51 → EEVIPCON 15:51 → ONC 16:24
PROVIDERS: ADMIT Family Medicine; ATTEND Family Medicine
DX: J44.1 Chronic obstructive pulmonary disease with (acute) exacerbation (principal); J96.21 Acute and chronic respiratory failure with hypoxia; C79.31 Secondary malignant neoplasm of brain; E87.1 Hypo-osmolality and hyponatremia; E44.0 Moderate protein-calorie malnutrition; Z68.1 Body mass index [BMI] 19.9 or less, adult; C34.91 Malignant neoplasm of unspecified part of right bronchus or lung; Z66 Do not resuscitate; J47.9 Bronchiectasis, uncomplicated; N18.2 Chronic kidney disease, stage 2 (mild); E03.2 Hypothyroidism due to medicaments and other exogenous substances; T45.1X5A Adverse effect of antineoplastic and immunosuppressive drugs, initial encounter; I12.9 Hypertensive chronic kidney disease with stage 1 through stage 4 chronic kidney disease, or unspecified chronic kidney disease; T78.40XA Allergy, unspecified, initial encounter; Z92.21 Personal history of antineoplastic chemotherapy; Z92.3 Personal history of irradiation; Z79.899 Other long term (current) drug therapy; Z88.0 Allergy status to penicillin; Z80.0 Family history of malignant neoplasm of digestive organs; Z87.891 Personal history of nicotine dependence; Z99.81 Dependence on supplemental oxygen
CPT/HCPCS: 36415; 71045; 71275; 77336; 77412; 80048; 80053; 84145; 84443; 85025; 85379; 87070; 87205; 87804; 87899; 89220; 94640; J1650; J7620; J8540; Q9966